=== PATIENT | female | born 1975 | race Caucasian/White ===

== ENCOUNTER 2016-12-27 18:51 | Emergency (ER) | payer MEDICARE ==
[2016-12-27 20:04] LABS: BASOPHILS % 0.2 (0.0-1.5); LYMPHOCYTES # 2.3 # k/uL (0.6-4.0); MONOCYTES # 0.2 # k/uL (0.0-0.9); MONOCYTES % 2.4 % (0.0-11.0); NEUTROPHILS # 6.7 # k/uL (1.4-7.7)
[2016-12-27] MEDS ORDERED: HALOPERIDOL LACTATE 5 MG/ML VIAL IM ONE ×3 (20:28→22:02)
[2016-12-27 20:36] LABS: eGFR (African) > 60; eGFR (Non-African) > 60
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
--- NOTE | 2016-12-27 20:58 | Diagnostic Imaging Report ---
CAMMY GUZMAN [facility] [id number] [facility] [address] [place] [address]. [id number] Report Submission Date: Dec 27, 2016 8:27:26 PM [employer] Patient Study Name: JONI ARAGON Date: Dec 27, 2016 8:09:56 PM [employer] Modality Type: CR Gender: F Description: CHEST : 77 Institution: [facility] Physician: CAMMY GUZMAN Chest 2 views History: Psych placement Findings: Right lower lobe bronchial wall thickening and possibly minimal peribronchovascular infiltrate are observed. Left lung is clear. No pleural effusions are observed. Heart size and pulmonary vascularity are normal. Impression: Right lower lobe bronchitis and possibly mild bronchopneumonia. Electronically signed on Dec 27, 2016 8:27:26 PM [employer] by: Bradley SEBASTIAN
[2016-12-27] MEDS ORDERED: HYDRALAZINE HCL 25 MG TABLET PO ONE (22:00)
[2016-12-27] MEDS ORDERED: POTASSIUM CHLORIDE 20 MEQ TABLET.ER ONE (22:10)
[2016-12-27] MEDS ORDERED: POTASSIUM CHLORIDE 20 MEQ TABLET.ER PO ONE (22:13)
[2016-12-28] MEDS ORDERED: 0.9 % SODIUM CHLORIDE 1,000 ML IV ONE (00:17)
[2016-12-28] MEDS ORDERED: 0.9 % SODIUM CHLORIDE 1,000 ML IV SCH (01:00)
[2016-12-28 03:25] VITALS: BP 106/55
[2016-12-28 05:24] LABS: AMPHETAMINE NEGATIVE ng/mL (<1000); BARBITURATES NEGATIVE ng/mL (<300); CANNABINOIDS NEGATIVE ng/mL (<50); COCAINE NEGATIVE ng/mL (<150); METHAMPHETAMINE NEGATIVE ng/mL (<1000); METHYLENEDIOXYMETHAMPHETAMINE NEGATIVE ng/mL (<500)
[2016-12-28 05:26] LABS: OCCULT BLOOD,URINE 1+ (NEGATIVE)
== END 2016-12-28 01:00 | disposition short-term general hospital (02) ==
LOC: ED 18:51
DX: R45.851 Suicidal ideations (principal)
CPT/HCPCS: 71020; 80053; 81002; 85025; 87086; 93005; A9270; G0477; G0479; G0480; G0481; J1630; J7030; 80302; 80304; 80320; 80377; 99283; 99284; S1016

== ENCOUNTER 2017-02-02 17:05 | Observation (INO) | payer MEDICARE ==
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
[2017-02-02] MEDS ORDERED: THIAMINE HCL 100 MG, MVI, ADULT NO.1 WITH VIT K 10 ML, FOLIC ACID 5 MG in 0.9 % SODIUM ... IV STA ×4 (17:24)
[2017-02-02] MEDS ORDERED: THIAMINE HCL 100 MG/ML 2ML VIAL ONE (17:30)
[2017-02-02] MEDS ORDERED: FOLIC ACID 5 MG/1 ML ONE (17:30)
[2017-02-02] MEDS ORDERED: 0.9 % SODIUM CHLORIDE 1,000 ML IV ONE (17:30)
[2017-02-02] MEDS ORDERED: MVI, ADULT NO.1 WITH VIT K 10 ML VIAL IV ONE (17:30)
[2017-02-02 17:45] LABS: BASOPHILS % 0.2 (0.0-1.5); EOSINOPHILS % 2.1 % (0.0-6.8); MEAN CORPUSCULAR HEMOGLOBIN 31.3 pg (28.0-34.0); MEAN CORPUSCULAR VOLUME 90.4 fl (80.0-100.0); MONOCYTES % 3.2 % (0.0-11.0); NEUTROPHILS # 4.4 # k/uL (1.4-7.7)
[2017-02-02 17:58] LABS: eGFR (African) > 60; eGFR (Non-African) > 60
[2017-02-02] MEDS ORDERED: POTASSIUM CHLORIDE 20 MEQ TABLET.ER PO ONE (18:37)
--- NOTE | 2017-02-02 20:41 | History and Physical Report ---
History of Present Illnes - History of Present Illness Reason for Visit: Acute alcohol intoxication History of Present Illness: 41 year old chronic alcoholic who presented to the ER today with c/o chornic alcoholism and desire to stop drinking. She is brought to the ER by her mother who is "done", and no longer will allow her in her home. - Past Medical History Cardiac: HTN Psych: Addictions (Alcoholism) Endocrine: Hypothyroidism, Other (Polycystic ovarian syndrome) - Past Surgical History Past Surgical History: Hysterectomy, Other (multiple ankle surgeries, Vaginal deliver x 4) - Past Social History Smoke: 1 pack per day Alcohol: Heavy Drugs: None Lives: Homeless Domestic Violence: Negative - Health Maintenance Health Maintenance: Cholesterol Influenza Vaccine: Current for this Influenza Season Pneumonia Vaccine: Yes Resuscitation Status: Full Code - Unable to Obtain History Unable to Obtain: No Review of Systems - Review of Systems Constitutional: negative: Fever Eyes: negative: pain ENT: negative: Ear Pain Respiratory: negative: Cough Cardiovascular: negative: Chest Pain Gastrointestinal: negative: Nausea Genitourinary: negative: Dysuria Musculoskeletal: negative: Neck Pain Skin: negative: Rash Neurological: Confusion - Medications/Allergies Allergies/Adverse Reactions: Allergies Allergy/AdvReac Type Severity Reaction Status Date / Time tramadol Allergy Severe seizure Verified 02/02/17 17:18 codeine Allergy Intermediate Itchy Skin Verified 02/02/17 17:18 Exam - Exam General: Alert (but with slurred speech) HEENT: Atraumatic, PERRLA, Nose Mucous membr. moist/[place] Neck: No: Stridor, Rigidity Lungs: Clear to auscultation Cardiovascular: Regular rate Murmur: No: Systolic Murmur Abdomen: Normal bowel sounds, Other (Tenderness of right subcostal margin and liver papable 3cm below the costal margin), Distended (due to central obesity) Genitourinary: No: Other Male Genitourinary: No: Other Female Genitourinary: No: Other Integumentary: Normal, [place] Extremities: No clubbing, No cyanosis Neurological: Other (slurred speech) Psych/Mental Status: No: Intact Judgment - Laboratory Results Laboratory Results: BAL .381 LFTs are elevated BUN/Cr 6/.6 Assessment/Plan - Assessment/Plan (1) Acute alcohol intoxication Status: Acute Current Visit: Yes Assessment: With BAL of .380 Plan: Observe overnight Work on placement for inpatient treatment in am (2) Hypertension Status: Acute Current Visit: Yes Assessment: Continue current medications (3) Hypothyroidism (acquired) Status: Acute Current Visit: Yes Assessment: Continue current dose of synthroid VTE Assessment - RISK FACTOR SCORE VTE RISK FACTOR SCORES: AGE 40-60 YEARS - RISK VTE LOW RISK: SCORE OF 1 OR LESS (RISK PROXIMAL DVT 0.4%) NO PROPHYLAXIS NEEDED (No DVT prophylaxis needed)
[2017-02-02] MEDS ORDERED: traZODone HCL 50 MG TABLET PO SCH (21:00)
[2017-02-02] MEDS ORDERED: SPIRONOLACTONE 25 MG TABLET PO SCH (21:07)
[2017-02-02] MEDS ORDERED: HYDROCHLOROTHIAZIDE 25 MG TABLET PO SCH (21:07)
[2017-02-02] MEDS ORDERED: levETIRAcetam 500 MG TABLET PO SCH (21:07)
[2017-02-02] MEDS ORDERED: 0.9 % SODIUM CHLORIDE 1,000 ML, POTASSIUM CHLORIDE 40 MEQ/NS 40 ML IV SCH ×2 (21:07)
[2017-02-02] MEDS ORDERED: POTASSIUM CHLORIDE 40 MEQ/NS 1,000 ML IV ONE (21:19)
[2017-02-02] MEDS ORDERED: SALINE FLUSH 10 ML DISP.SYRIN IVF ONE (21:19)
[2017-02-02] MEDS: NICOTINE 14mg PATCH.TD24 TD SCH (21:32)
[2017-02-02] MEDS: METOPROLOL TARTRATE 50 MG TABLET PO SCH (21:36)
[2017-02-02] MEDS: levETIRAcetam 500 MG TABLET PO SCH (21:36)
[2017-02-02] MEDS: 0.9 % SODIUM CHLORIDE 1,000 ML IV SCH (21:37)
[2017-02-02 23:04] VITALS: BMI 26.7
[2017-02-03] MEDS ORDERED: LEVOTHYROXINE SODIUM 100 MCG TABLET PO ONE (03:07)
[2017-02-03 05:56] LABS: AMPHETAMINE NEGATIVE ng/mL (<1000); BARBITURATES NEGATIVE ng/mL (<300); CANNABINOIDS NEGATIVE ng/mL (<50); COCAINE NEGATIVE ng/mL (<150); METHAMPHETAMINE NEGATIVE ng/mL (<1000); METHYLENEDIOXYMETHAMPHETAMINE NEGATIVE ng/mL (<500)
[2017-02-03] MEDS: 0.9 % SODIUM CHLORIDE 1,000 ML IV SCH ×2 (06:24→08:13)
[2017-02-03] MEDS ORDERED: HYDROCHLOROTHIAZIDE 25 MG TABLET PO SCH (07:00)
[2017-02-03] MEDS ORDERED: LEVOTHYROXINE SODIUM 25 MCG TABLET PO SCH ×2 (07:00→09:00)
[2017-02-03 07:12] LABS: eGFR (African) > 60; eGFR (Non-African) > 60
[2017-02-03] MEDS: METOPROLOL TARTRATE 50 MG TABLET PO SCH (08:16)
[2017-02-03] MEDS: NICOTINE 14mg PATCH.TD24 TD SCH (08:17)
[2017-02-03] MEDS: levETIRAcetam 500 MG TABLET PO SCH (08:17)
[2017-02-03] MEDS ORDERED: PRAZOSIN HCL 1 MG CAP PO SCH (09:00)
[2017-02-03] MEDS ORDERED: SPIRONOLACTONE 25 MG TABLET PO SCH (09:00)
[2017-02-03] MEDS ORDERED: GABAPENTIN 300 MG CAPSULE PO SCH (09:00)
[2017-02-03] MEDS ORDERED: amLODIPine BESYLATE 5 MG TABLET PO SCH ×2 (09:00)
[2017-02-03] MEDS ORDERED: clonazePAM 1 MG TABLET PO ONE (09:04)
[2017-02-03] MEDS ORDERED: clonazePAM 0.5 MG TABLET PO ONE (09:19)
[2017-02-03 10:36] VITALS: BP 152/94
--- NOTE | 2017-02-04 08:50 | Discharge Summary ---
DATE OF ADMISSION: February 02, 2017 DATE OF DISCHARGE: February 03, 2017 DIAGNOSES ON THIS HOSPITALIZATION: 1. Acute alcohol intoxication. 2. Hypothyroidism. 3. Chronic anxiety. SUMMARIZATION OF ADMISSION HISTORY AND PHYSICAL: This is a 41-year-old female who presented to the emergency department with a blood alcohol level of 0.380. She was admitted and observed overnight. The next morning her blood alcohol level was less than 0.01. She will be discharged. [facility] is working on inpatient drug/alcohol rehabilitation for her. MEDICATIONS ON DISCHARGE: Continue all of her regular medications. DISCHARGE INSTRUCTIONS: Follow up with Dr. Morales after discharge from inpatient rehabilitation. ROMULO
== END 2017-02-03 14:08 | disposition short-term general hospital (02) ==
LOC: ED 17:05 → SOUTH 19:42
PROVIDERS: ADMIT Family Medicine; ATTEND Family Medicine
DX: F10.129 Alcohol abuse with intoxication, unspecified (principal); Y90.1 Blood alcohol level of 20-39 mg/100 ml; E03.9 Hypothyroidism, unspecified; F41.9 Anxiety disorder, unspecified
CPT/HCPCS: 36415; 80048; 80053; 85025; A9270; G0378; G0480; G0481; J3411; J3480; J3490; J7030; 80320; 80377; S1016

== ENCOUNTER 2017-06-28 23:06 | Emergency (ER) | payer MEDICARE ==
[2017-06-28 23:51] LABS: BASOPHILS % 0.4 (0.0-1.5); EOSINOPHILS % 2.7 % (0.0-6.8); MEAN CORPUSCULAR HEMOGLOBIN 29.9 pg (28.0-34.0); MEAN CORPUSCULAR VOLUME 91.5 fl (80.0-100.0); NEUTROPHILS # 3.7 # k/uL (1.4-7.7)
[2017-06-29 00:06] LABS: eGFR (African) > 60; eGFR (Non-African) > 60
[2017-06-29] MEDS ORDERED: THIAMINE HCL 100 MG/ML 2ML VIAL ONE (00:41)
[2017-06-29] MEDS ORDERED: 0.9 % SODIUM CHLORIDE 1,000 ML IV ONE (00:41)
[2017-06-29] MEDS ORDERED: FOLIC ACID 5 MG/1 ML ONE (00:42)
[2017-06-29] MEDS ORDERED: MVI, ADULT NO.1 WITH VIT K 10 ML VIAL IV ONE (00:42)
[2017-06-29] MEDS: 0.9 % SODIUM CHLORIDE 1,000 ML IV ONE (00:57)
[2017-06-29] MEDS: THIAMINE HCL 100 MG, MVI, ADULT NO.1 WITH VIT K 10 ML, FOLIC ACID 5 MG in 0.9 % SODIUM ... IV SCH ×4 (01:11)
[2017-06-29] MEDS: POTASSIUM CHLORIDE 20 MEQ TABLET.ER PO ONE (01:14)
--- NOTE | 2017-06-29 01:22 | ED Physician Documentation ---
General Adult - HISTORIAN Historian: patient - HPI Stated Complaint: To much alcohol Chief Complaint: General Adult Onset: hours Further Comments: yes (41 year old female patient brought in by Mother requesting detox unit admission. Patient intoxicated, slurred speech, strong smell of ETOH, cannot contribute to ROS or H&P.) - ROS CONST: no problems (Patient cannot contribute to ROS or H&P due to intoxication) - PAST HX Other History: other (HTN, ETOH abuse, hypothyroidism) Allergies/Adverse Reactions: Allergies Allergy/AdvReac Type Severity Reaction Status Date / Time tramadol Allergy Severe seizure Verified 06/29/17 00:09 codeine Allergy Intermediate Itchy Skin Verified 06/29/17 00:09 Home Medications: Ambulatory Orders Medication Instructions Recorded Hydrochlorothiazide 25 mg PO BID 12/20/15 Levothyroxine Sodium [Synthroid] 112 mcg PO D 12/20/15 Gabapentin [Neurontin] 1,200 mg PO TID 12/27/16 Oxycodone HCl/Acetaminophen 1 tab PO Q6 PRN 12/27/16 [Oxycodone-Acetaminophen 10-325] Prazosin HCl [Minipress] 2 mg PO QDAY 12/27/16 Spironolactone [Aldactone] 25 mg PO HS 12/27/16 Spironolactone [Aldactone] 50 mg PO QDAY 12/27/16 Trazodone HCl [Desyrel] 100 mg PO HS 12/27/16 amLODIPine BESYLATE [Norvasc] 5 mg PO QDAY 12/27/16 clonazePAM [Klonopin] 1 mg PO TID PRN 12/27/16 - SOCIAL HX Smoking History: cigarettes Alcohol Use: heavy - FAMILY HX Family History: No - VITAL SIGNS Vital Signs: Vital Signs Temp Pulse Resp BP Pulse Ox 68 16 124/68 99 06/28/17 23:06 06/28/17 23:06 06/28/17 23:06 06/28/17 23:06 - REVIEWED ASSESSMENTS Nursing Assessment Reviewed: Yes Vitals Reviewed: Yes Progress - Progress Progress: Educated patient's mother on process for admission to detox. Explained we could not directly admit patient to detox unit tonight. Patient denies suicidal thoughts of ideation 0100 Patient remains very sleepy, cooperative when awakened. ED Results Lab/Radiology - Lab Results Lab Results: Lab Results 06/28/17 06/28/17 23:44 23:44 WBC 6.50 K/ul K/ul (4.00-12.00) RBC 4.55 M/ul M/ul (3.90-5.20) Hgb 13.6 g/dL g/dL (12.0-16.0) Hct 41.6 % % (34.5-46.5) MCV 91.5 fl fl (80.0-100.0) MCH 29.9 pg pg (28.0-34.0) MCHC 32.6 g/dL g/dL (30.0-36.0) RDW 14.1 % % (11.3-14.3) Plt Count 175 K/mm3 K/mm3 (130-400) Neut % (Auto) 57.0 % % (39.0-79.0) Lymph % (Auto) 35.5 % % (16.0-50.0) [place] % (Auto) 3.0 % % (0.0-11.0) Eos % (Auto) 2.7 % % (0.0-6.8) Baso % (Auto) 0.4 (0.0-1.5) Neut # (Auto) 3.7 # k/uL # k/uL (1.4-7.7) Lymph # (Auto) 2.3 # k/uL # k/uL (0.6-4.0) [place] # (Auto) 0.2 # k/uL # k/uL (0.0-0.9) Eos # (Auto) 0.2 # k/uL # k/uL (0.0-0.6) Baso # (Auto) 0.0 # k/uL # k/uL (0.0-0.5) Reactive Lymphs % 1.4 % % (0.0-5.0) Reactive Lymphs # 0.1 # k/uL # k/uL (0.0-0.8) Sodium 145 mmol/L mmol/L (136-145) Potassium 3.1 mmol/L L mmol/L (3.5-5.0) Chloride 110 mmol/L mmol/L (98-110) Carbon Dioxide 30 mmol/L mmol/L (20-32) BUN 7 mg/dL L mg/dL (10-26) Creatinine 0.7 mg/dL mg/dL (0.4-1.5) Est GFR ( Amer) > 60 (60 - ) Est GFR (Non-Af Amer) > 60 (60 - ) Glucose 98 mg/dL mg/dL (70-99) Calcium 9.2 mg/dL mg/dL (8.5-10.5) Total Bilirubin 0.4 mg/dL mg/dL (0.2-1.2) AST 28 U/L U/L (0-41) ALT 19 U/L U/L (0-45) Alkaline Phosphatase 100 U/L U/L (46-116) Total Protein 7.7 g/dL g/dL (6.0-8.5) Albumin 4.8 g/dL g/dL (3.0-5.5) Ethyl Alcohol 376.0 MG/DL H MG/DL (<10.0) - Orders Orders: ED Orders Category Date Time Status Place IV Lock 1T Care 06/28/17 23:11 Active CBC/PLATELET/DIFF Stat Lab 06/28/17 23:44 Completed CMP Stat Lab 06/28/17 23:44 Completed ETHANOL MEDICAL USE ONLY Stat Lab 06/28/17 23:44 Completed 0.9 % Sodium Chloride [Normal Saline] 1,000 ml Med 06/29/17 00:41 Discontinued IV .STK-MED 0.9 % Sodium Chloride [Normal Saline] 1,000 ml Med 06/28/17 23:12 Discontinued IV NOW Folic Acid [Folvite] Med 06/29/17 00:42 Discontinued 5 mg .ROUTE .STK-MED ONE Mvi, Adult No.1 with Vit K [M.v.i. Adult] Med 06/29/17 00:42 Discontinued 10 ml IV .STK-MED ONE Potassium Chloride [Klor-Con M20] Med 06/29/17 00:48 Discontinued 20 meq PO NOW ONE Thiamine HCl Med 06/29/17 00:41 Discontinued 200 mg .ROUTE .STK-MED ONE Thiamine HCl 100 mg Med 06/29/17 01:00 Ordered Mvi, Adult No.1 with Vit K [M.v.i. 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 ) Discharge Clincal Impression: Alcohol abuse Acute alcohol intoxication Qualifiers: Complication of substance-induced condition: uncomplicated Qualified Code(s): F10.920 - Alcohol use, unspecified with intoxication, uncomplicated Referrals: Primary Doctor,No [Primary Care Provider] - 2 Days Additional Instructions: Stop drinking Attend an AA meeting as soon as possible - see attached [email or web address] Home Medications: Ambulatory Orders Hydrochlorothiazide 25 mg PO BID 12/20/15 Levothyroxine Sodium [Synthroid] 112 mcg PO D 12/20/15 Gabapentin [Neurontin] 1,200 mg PO TID 12/27/16 Oxycodone HCl/Acetaminophen [Oxycodone-Acetaminophen 10-325] 1 tab PO Q6 PRN 08/05 Prazosin HCl [Minipress] 2 mg PO QDAY 12/27/16 Spironolactone [Aldactone] 25 mg PO HS 12/27/16 Spironolactone [Aldactone] 50 mg PO QDAY 12/27/16 Trazodone HCl [Desyrel] 100 mg PO HS 12/27/16 amLODIPine BESYLATE [Norvasc] 5 mg PO QDAY 12/27/16 clonazePAM [Klonopin] 1 mg PO TID PRN 12/27/16 Condition: Stable Disposition: 01 HOME, SELF-CARE Decision to Admit: NO Decision Time: 01:51
[2017-06-29 02:24] VITALS: BP 122/64
== END 2017-06-29 02:05 | disposition home or self-care (01) ==
LOC: ED 23:06
DX: F10.129 Alcohol abuse with intoxication, unspecified (principal); F10.920 Alcohol use, unspecified with intoxication, uncomplicated
CPT/HCPCS: 80053; 85025; A9270; G0480; J3411; J3490; J7030; 80320; 96361; 96374; 99283; S1016

== ENCOUNTER 2017-08-26 17:41 | Emergency (ER) | payer MEDICARE ==
--- NOTE | 2017-08-26 17:48 | ED Physician Documentation ---
General Adult - HISTORIAN Historian: patient, other (mom ) - HPI Stated Complaint: alcoholism and suicidal per mom Chief Complaint: Altered Mental Status Onset: other (fighting this for years per mom ) Timing: still present Severity: severe Further Comments: yes (mom has called receivable executive and returns with 96 hour hold) Last known Well Date: 08/26/17 Last Known Well Time: 08:00 Last known Well Code/Unknown Code: Unknown - ROS CONST: no problems EYES/ENT: none CVS/RESP: none GI/: none MS/SKIN/LYMPH: none NEURO/PSYCH: dizziness. denies: headache, fainting - PAST HX Past History: other (she does not respond ) Other History: other (she does not respond ) Surgeries/Procedures: other (she does not repsond ) Immunizations: referred to PCP - SOCIAL HX Smoking History: cigarettes Alcohol Use: heavy Drug Use: none - FAMILY HX Family History: No - VITAL SIGNS Vital Signs: Vital Signs Temp Pulse Resp BP Pulse Ox 122/64 06/29/17 02:22 - REVIEWED ASSESSMENTS Nursing Assessment Reviewed: Yes Vitals Reviewed: Yes <Brittney Alcantara - Last Filed: 08/26/17 18:55> - VITAL SIGNS Vital Signs: Vital Signs Temp Pulse Resp BP Pulse Ox 97.9 F 88 16 137/96 99 08/26/17 19:30 08/26/17 19:30 08/26/17 19:30 08/26/17 19:30 08/26/17 19:30 <Suhail Elias - Last Filed: 08/26/17 20:39> - PAST HX Allergies/Adverse Reactions: Allergies Allergy/AdvReac Type Severity Reaction Status Date / Time tramadol Allergy Severe seizure Verified 08/26/17 18:21 codeine Allergy Intermediate Itchy Skin Verified 08/26/17 18:21 Home Medications: Ambulatory Orders Medication Instructions Recorded Hydrochlorothiazide 25 mg PO BID 12/20/15 Levothyroxine Sodium [Synthroid] 112 mcg PO D 12/20/15 Gabapentin [Neurontin] 1,200 mg PO TID 12/27/16 Prazosin HCl [Minipress] 2 mg PO QDAY 12/27/16 Spironolactone [Aldactone] 25 mg PO HS 12/27/16 Spironolactone [Aldactone] 50 mg PO QDAY 12/27/16 Trazodone HCl [Desyrel] 100 mg PO HS 12/27/16 amLODIPine BESYLATE [Norvasc] 5 mg PO QDAY 12/27/16 clonazePAM [Klonopin] 1 mg PO TID PRN 12/27/16 Progress - Progress Progress: report to Dr Elias 1800 DG <Lizarragae Dee - Last Filed: 08/26/17 18:55> ED Results Lab/Radiology - Lab Results Lab Results: Lab Results 08/26/17 08/26/17 08/26/17 19:35 18:19 18:19 WBC 8.80 K/ul K/ul (4.00-12.00) RBC 5.07 M/ul M/ul (3.90-5.20) Hgb 15.0 g/dL g/dL (12.0-16.0) Hct 45.1 % % (34.5-46.5) MCV 89.0 fl fl (80.0-100.0) MCH 29.7 pg pg (28.0-34.0) MCHC 33.3 g/dL g/dL (30.0-36.0) RDW 13.1 % % (11.3-14.3) Plt Count 232 K/mm3 K/mm3 (130-400) Neut % (Auto) 66.1 % % (39.0-79.0) Lymph % (Auto) 29.4 % % (16.0-50.0) [place] % (Auto) 2.1 % % (0.0-11.0) Eos % (Auto) 0.7 % % (0.0-6.8) Baso % (Auto) 0.2 (0.0-1.5) Neut # (Auto) 5.8 # k/uL # k/uL (1.4-7.7) Lymph # (Auto) 2.6 # k/uL # k/uL (0.6-4.0) [place] # (Auto) 0.2 # k/uL # k/uL (0.0-0.9) Eos # (Auto) 0.1 # k/uL # k/uL (0.0-0.6) Baso # (Auto) 0.0 # k/uL # k/uL (0.0-0.5) Reactive Lymphs % 1.6 % % (0.0-5.0) Reactive Lymphs # 0.1 # k/uL # k/uL (0.0-0.8) Sodium Potassium Chloride Carbon Dioxide BUN Creatinine Estimated Creat Clear Est GFR ( Amer) Est GFR (Non-Af Amer) Glucose Calcium Total Bilirubin AST ALT Alkaline Phosphatase Total Protein Albumin Opiates Screen Negative ng/mL ng/mL (<300) Oxycodone Screen Negative ng/mL ng/mL (<100) Methadone Screen Negative ng/mL ng/mL (<300) POC Urine Barbiturates Negative ng/mL ng/mL (<300) Tricyclic Antidepress Negative ng/mL ng/mL (<300) Phencyclidine Screen Negative ng/mL ng/mL (<25) Amphetamines Screen Negative ng/mL ng/mL (<1000) POC Ur Methamphetamine Negative ng/mL ng/mL (<1000) MDMA Negative ng/mL ng/mL (<500) Benzodiazepines Screen Negative ng/mL ng/mL (<300) Cocaine Screen Negative ng/mL ng/mL (<300) U Cannabinoids Screen Negative ng/mL ng/mL (< 50) Ethyl Alcohol 317.7 mg/dL H mg/dL (0.0-10.0) 08/26/17 18:15 WBC RBC Hgb Hct MCV MCH MCHC RDW Plt Count Neut % (Auto) Lymph % (Auto) [place] % (Auto) Eos % (Auto) Baso % (Auto) Neut # (Auto) Lymph # (Auto) [place] # (Auto) Eos # (Auto) Baso # (Auto) Reactive Lymphs % Reactive Lymphs # Sodium 146 mmol/L H mmol/L (137-145) Potassium 3.3 mmol/L L mmol/L (3.5-5.1) Chloride 102 mmol/L mmol/L (98-107) Carbon Dioxide 29 mmol/L mmol/L (22-30) BUN 10 mg/dL mg/dL (7-17) Creatinine 0.70 mg/dL mg/dL (0.52-1.04) Estimated Creat Clear 152 Est GFR ( Amer) > 60 (60 - ) Est GFR (Non-Af Amer) > 60 (60 - ) Glucose 83 mg/dL mg/dL (74-106) Calcium 9.2 mg/dL mg/dL (8.4-10.2) Total Bilirubin 0.5 mg/dL mg/dL (0.2-1.3) AST 49 U/L H U/L (15-46) ALT 42 U/L U/L (13-69) Alkaline Phosphatase 89 U/L U/L (38-126) Total Protein 7.9 g/dL g/dL (6.3-8.2) Albumin 4.6 g/dL g/dL (3.5-5.0) Opiates Screen Oxycodone Screen Methadone Screen POC Urine Barbiturates Tricyclic Antidepress Phencyclidine Screen Amphetamines Screen POC Ur Methamphetamine MDMA Benzodiazepines Screen Cocaine Screen U Cannabinoids Screen Ethyl Alcohol - Orders Orders: ED Orders Category Date Time Status Place IV Lock 1T Care 08/26/17 18:12 Active ALCOHOL MEDICAL USE ONLY Urgent Lab 08/26/17 18:19 Completed CBC AUTO DIFF Urgent Lab 08/26/17 18:19 Completed CMP [CMP] Routine Lab 08/26/17 18:15 Completed Urine drug screen [DRUG SCREEN URINE MEDICAL ONLY] Lab 08/26/17 19:35 Completed Routine 0.9 % Sodium Chloride [Normal Saline] 1,000 ml Med 08/26/17 18:17 Discontinued IV .STK-MED Folic Acid [Folvite] Med 08/26/17 18:17 Discontinued 5 mg .ROUTE .STK-MED ONE Mvi, Adult No.1 with Vit K [M.v.i. Adult] Med 08/26/17 18:17 Discontinued 10 ml IV .STK-MED ONE [facility] Med 08/26/17 18:23 Discontinued 1 each MC .STK-MED ONE Thiamine HCl Med 08/26/17 18:17 Discontinued 200 mg .ROUTE .STK-MED ONE Thiamine HCl 100 mg Med 08/26/17 19:00 Ordered Mvi, Adult No.1 with Vit K [M.v.i. Adult] 10 ml Folic Acid [Folvite] 5 mg 0.9 % Sodium Chloride [Normal Saline] 1,000 ml IV 1T <Suhail Elias - Last Filed: 08/26/17 20:39> General Adult Physical Exam - PHYSICAL EXAM GENERAL APPEARANCE: no distress EENT: ENT inspection normal NECK: normal inspection RESPIRATORY: no resp distress, chest non-tender, breath sounds normal CVS: reg rate & rhythm, heart sounds normal ABDOMEN: soft, no organomegaly, normal bowel sounds SKIN: warm/dry, normal color EXTREMITIES: non-tender NEURO: disoriented, other (she is intoxicated ) <Brittney Alcantara - Last Filed: 08/26/17 18:55> Discharge <Brittney Alcantara - Last Filed: 08/26/17 18:55> Comments: rec pt fromn DR HILL -HAS 96HR HOLD FOR OF [facility] Decision to Admit: [id number] Decision Time: 20:39 <Suhail Elias - Last Filed: 08/26/17 20:39> Clincal Impression: chronic ethanol abuse, angerdisorder w/agitation w/etoh, violent behavior when intoxicated Suicidal overdose Qualifiers: Encounter type: initial encounter Qualified Code(s): T50.902A - Poisoning by unspecified drugs, medicaments and biological substances, intentional self-harm , initial encounter Referrals: Primary Doctor,No [Primary Care Provider] - 2 Days Condition: Fair Disposition: 02 XFER T-[facility]
[2017-08-26] MEDS ORDERED: THIAMINE HCL 100 MG/ML 2ML VIAL ONE (18:17)
[2017-08-26] MEDS ORDERED: 0.9 % SODIUM CHLORIDE 1,000 ML IV ONE (18:17)
[2017-08-26] MEDS ORDERED: MVI, ADULT NO.1 WITH VIT K 10 ML VIAL IV ONE (18:17)
[2017-08-26] MEDS ORDERED: FOLIC ACID 5 MG/1 ML ONE (18:17)
[2017-08-26] MEDS ORDERED: PHARMACY KEY 1 EACH EACH MC ONE (18:23)
[2017-08-26 18:27] LABS: BASOPHILS % 0.2 (0.0-1.5); EOSINOPHILS % 0.7 % (0.0-6.8); MEAN CORPUSCULAR HEMOGLOBIN 29.7 pg (28.0-34.0); MONOCYTES % 2.1 % (0.0-11.0); NEUTROPHILS # 5.8 # k/uL (1.4-7.7)
[2017-08-26 18:38] LABS: eGFR (African) > 60; eGFR (Non-African) > 60
[2017-08-26] MEDS: THIAMINE HCL 100 MG, MVI, ADULT NO.1 WITH VIT K 10 ML, FOLIC ACID 5 MG in 0.9 % SODIUM ... IV SCH ×4 (19:00)
[2017-08-26 19:41] LABS: AMPHETAMINE NEGATIVE ng/mL (<1000); BARBITURATES NEGATIVE ng/mL (<300); CANNABINOIDS NEGATIVE ng/mL (< 50); COCAINE NEGATIVE ng/mL (<300); METHAMPHETAMINE NEGATIVE ng/mL (<1000); METHYLENEDIOXYMETHAMPHETAMINE NEGATIVE ng/mL (<500); OPIATES NEGATIVE ng/mL (<300)
[2017-08-26 21:02] VITALS: BP 151/100
== END 2017-08-26 21:00 | disposition short-term general hospital (02) ==
LOC: ED 17:41
DX: T50.902A Poisoning by unspecified drugs, medicaments and biological substances, intentional self-harm, initial encounter (principal); X58.XXXA Exposure to other specified factors, initial encounter; Y93.9 Activity, unspecified; Y99.9 Unspecified external cause status; F10.129 Alcohol abuse with intoxication, unspecified; R45.4 Irritability and anger
CPT/HCPCS: 80053; 85025; G0480; G0481; J3411; J3490; J7030; 80320; 80377; 96361; 96374; 99284; S1016

== ENCOUNTER 2017-10-21 19:23 | Observation (INO) | payer MEDICARE ==
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
[2017-10-21] MEDS ORDERED: LORazepam 2 MG/ML VIAL IVP ONE (19:48)
[2017-10-21] MEDS ORDERED: 0.9 % SODIUM CHLORIDE 1,000 ML IV ONE (19:53)
[2017-10-21] MEDS ORDERED: THIAMINE HCL 100 MG/ML 2ML VIAL ONE (19:53)
[2017-10-21] MEDS: THIAMINE HCL 100 MG, MVI, ADULT NO.1 WITH VIT K 10 ML, FOLIC ACID 5 MG in 0.9 % SODIUM ... IV SCH ×8 (20:25→23:06)
[2017-10-21 20:38] LABS: BASOPHILS % 0.3 (0.0-1.5); MEAN CORPUSCULAR HEMOGLOBIN 31.4 pg (28.0-34.0); MONOCYTES % 4.5 % (0.0-11.0); NEUTROPHILS # 4.6 # k/uL (1.4-7.7)
[2017-10-21 20:53] LABS: eGFR (African) > 60; eGFR (Non-African) > 60
[2017-10-21] MEDS ORDERED: HALOPERIDOL LACTATE 5 MG/ML VIAL IM ONE (21:55)
[2017-10-21] MEDS ORDERED: LORazepam 2 MG/ML VIAL IVP PRN (22:27)
[2017-10-21] MEDS: 0.9 % SODIUM CHLORIDE 1,000 ML IV SCH (22:30)
[2017-10-21] MEDS ORDERED: LEVOTHYROXINE SODIUM 25 MCG TABLET ONE (22:59)
[2017-10-21] MEDS ORDERED: LEVOTHYROXINE SODIUM 100 MCG TABLET ONE (23:00)
[2017-10-21] MEDS: GABAPENTIN 300 MG CAPSULE PO SCH (23:04)
[2017-10-21] MEDS: levETIRAcetam 500 MG TABLET PO SCH (23:04)
[2017-10-21] MEDS: SPIRONOLACTONE 25 MG TABLET PO SCH (23:05)
[2017-10-21 23:30] VITALS: BMI 24.0
[2017-10-22] MEDS: 0.9 % SODIUM CHLORIDE 1,000 ML IV SCH (08:59)
[2017-10-22] MEDS ORDERED: METOPROLOL SUCCINATE 50 MG TAB.ER.24H PO SCH (09:00)
[2017-10-22] MEDS ORDERED: LEVOTHYROXINE SODIUM 25 MCG TABLET PO SCH (09:00)
[2017-10-22] MEDS ORDERED: HYDROCHLOROTHIAZIDE 25 MG TABLET PO SCH (09:00)
[2017-10-22] MEDS ORDERED: PRAZOSIN HCL 1 MG CAPSULE PO SCH (09:00)
[2017-10-22] MEDS: levETIRAcetam 500 MG TABLET PO SCH (09:05)
[2017-10-22] MEDS: GABAPENTIN 300 MG CAPSULE PO SCH (09:05)
[2017-10-22] MEDS: SPIRONOLACTONE 25 MG TABLET PO SCH (09:06)
[2017-10-22] MEDS ORDERED: SALINE FLUSH 10 ML DISP.SYRIN IVF ONE (09:32)
[2017-10-22 09:46] LABS: APPEARANCE,URINE CLEAR (CLEAR); COLOR,URINE YELLOW (YELLOW)
[2017-10-22 09:47] LABS: OCCULT BLOOD,URINE NEGATIVE (NEGATIVE); UROBILINOGEN URINE 0.2 Eu (0.2-1.0)
[2017-10-22 11:14] LABS: BASOPHILS % 0.2 (0.0-1.5); EOSINOPHILS % 1.8 % (0.0-6.8); MEAN CORPUSCULAR HEMOGLOBIN 30.3 pg (28.0-34.0); MEAN CORPUSCULAR VOLUME 92.2 fl (80.0-100.0); MONOCYTES % 4.9 % (0.0-11.0); NEUTROPHILS # 3.4 # k/uL (1.4-7.7)
[2017-10-22 11:15] LABS: eGFR (African) > 60; eGFR (Non-African) > 60
[2017-10-22 11:46] VITALS: BP 139/92
[2017-10-22] MEDS ORDERED: traZODone HCL 50 MG TABLET ONE (12:32)
[2017-10-22] MEDS ORDERED: traZODone HCL 50 MG TABLET PO SCH (21:00)
== END 2017-10-22 13:20 | disposition home or self-care (01) ==
LOC: ED 19:23 → SOUTH 22:44
PROVIDERS: ADMIT Emergency Medicine; ATTEND Emergency Medicine
DX: F10.239 Alcohol dependence with withdrawal, unspecified (principal); F41.9 Anxiety disorder, unspecified
CPT/HCPCS: 36415; 80053; 81002; 85025; G0378; G0480; J1630; J2060; J3411; J3490; J7030; 80320; 96361; 96372; 96374; 99217; 99283; 99284; S1016

== ENCOUNTER 2017-12-22 16:22 | Emergency (ER) | payer OTHER ==
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
[2017-12-22] MEDS: 0.9 % SODIUM CHLORIDE 1,000 ML IV SCH (18:07)
[2017-12-22] MEDS: LABETALOL HCL 100MG/20ML VIAL IVP STA ×2 (18:07→18:08)
[2017-12-22] MEDS: CloNIDine HCL 0.1 MG TABLET PO ONE ×2 (18:09)
[2017-12-22 19:09] VITALS: BP 142/98
== END 2017-12-22 18:07 | disposition home or self-care (01) ==
LOC: ED 16:22
DX: Z76.89 Persons encountering health services in other specified circumstances (principal); I10 Essential (primary) hypertension; F10.129 Alcohol abuse with intoxication, unspecified
CPT/HCPCS: 99282

== ENCOUNTER 2018-03-12 17:36 | Emergency (ER) | payer OTHER ==
[2018-03-12] MEDS ORDERED: 0.9 % SODIUM CHLORIDE 1,000 ML IV ONE (18:14)
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
[2018-03-12 19:29] LABS: BASOPHILS % 0.1 (0.0-1.5); MEAN CORPUSCULAR HEMOGLOBIN 31.8 pg (28.0-34.0); MEAN CORPUSCULAR VOLUME 95.1 fl (80.0-100.0); MONOCYTES % 3.1 % (0.0-11.0); NEUTROPHILS # 6.4 # k/uL (1.4-7.7)
[2018-03-12 19:34] LABS: eGFR (African) > 60; eGFR (Non-African) > 60
[2018-03-12 20:42] VITALS: BP 157/105
[2018-03-13 07:18] LABS: CANNABINOIDS NEGATIVE ng/mL (< 50); METHYLENEDIOXYMETHAMPHETAMINE NON NEGATIVE ng/mL (<500)
[2018-03-13 07:18] LABS: APPEARANCE,URINE CLEAR (CLEAR); COLOR,URINE YELLOW (YELLOW); OCCULT BLOOD,URINE NEGATIVE (NEGATIVE)
== END 2018-03-12 20:10 | disposition home or self-care (01) ==
LOC: ED 17:36
DX: G40.909 Epilepsy, unspecified, not intractable, without status epilepticus (principal)
CPT/HCPCS: 80053; 80177; 81002; 85025; G0480; G0481; J7030; 80320; 80377; 96360; 99284

== ENCOUNTER 2018-03-12 21:26 | Emergency (ER) | payer OTHER ==
--- NOTE | 2018-03-12 21:37 | ED Physician Documentation ---
Seizure - HISTORIAN Historian: patient, paramedics - [facility] Stated Complaint: Seizure Activity Chief Complaint: Seizure Additional Information: Patient was recently discharged to home from ER after 3 hour evaluation where no seizure activity was noted. Patient was discharged to home alert and oriented x 4. EMS brought patient back to ER status post seizure. Patient states that she went home- denies taking any medication- denies any drug use- states she did smoke a cigarette-and took a shower. Per EMS, friend stated, that while patient was in the shower she had a "seizure with all extremity involvement" that lasted approximately 45 seconds. Upon EMS arrival they stated that patient did appear confused and disoriented- noticed some "drool" to patient lip. Patient was not incontinent of bowel or bladder. Did night bite tongue or gums. Upon arrival patient is alert and oriented. Upon talking to patient it appears that patient tends to be having orthostatic moments since activity happens while standing. Prior to today patient states that she has not had a seizure for 2-3 weeks. Her PCP monitors her seizure medication which has not been adjusted in awhile. Last known Well Date: 03/12/18 Last Known Well Time: 21:00 Last known Well Code/Unknown Code: Known Witnessed By: friend Preceding Symptoms: denies: recent illness, fever, chills, recent alcohol intake , recent drug use, missed seizure meds Character of Seizure(s): "shaking all over". denies: lost consciousness, unresponsiveness, incontinence of urine, incontinence of stool, stopped breathing Postictal Symptoms: confusion (per EMS), speech difficulty (per EMS- had some drooling) Location of Injury: none - ROS NEURO/PSYCH: denies: headache EYES/ENT: none CVS/RESP: none GI/: denies: adominal pain, nausea, vomiting MS/SKIN/LYMPH: none - PAST HX Previous seizure/seizure disorder: occasional Etiology: ethanol abuse, other (MS/ Chronic pain) Allergies/Adverse Reactions: Allergies Allergy/AdvReac Type Severity Reaction Status Date / Time tramadol Allergy Severe seizure Verified 03/12/18 21:34 codeine Allergy Intermediate Itchy Skin Verified 03/12/18 21:34 Home Medications: Ambulatory Orders Medication Instructions Recorded Duloxetine HCl [Duloxetine HCl] 60 mg PO D 03/12/18 Gabapentin [Neurontin] 1,200 mg PO TID 03/12/18 Hydroxyzine HCl [Hydroxyzine HCl] 25 mg PO D 03/12/18 Labetalol HCl [Labetalol HCl] 200 mg PO TID 03/12/18 Levothyroxine Sodium [Synthroid] 175 mcg PO D 03/12/18 Naltrexone Microspheres [Vivitrol] 50 mg PO BID 03/12/18 Ondansetron [Zofran Odt] 4 mg SL PRN PRN 03/12/18 Prazosin HCl 3 mg PO HS 03/12/18 Spironolactone [Spironolactone] 25 mg PO [id number] 03/12/18 Spironolactone [Spironolactone] 50 mg PO AM 03/12/18 Trazodone HCl 300 mg PO HS 03/12/18 Varenicline Tartrate [Chantix] 1 mg PO BID 03/12/18 levETIRAcetam [Keppra] 500 mg PO BID 03/12/18 - SOCIAL HX Smoking History: cigarettes, less than 1 pack/day Alcohol Use: occasionally Drug Use: none - FAMILY HX Family History: none - VITAL SIGNS Vital Signs: Vital Signs Temp Pulse Resp BP Pulse Ox 97.6 F 79 16 161/110 96 03/12/18 21:30 03/13/18 00:10 03/13/18 00:10 03/13/18 00:10 03/13/18 00:10 - REVIEWED ASSESSMENTS Nursing Assessment Reviewed: Yes Vitals Reviewed: Yes Progress - Results/Orders Results/Orders: Orthostatics completed lying 134/95 93 Sitting 132/95 89 (became dizzy) standing 118/81 pulse of 109 (patient became diaphoretic) Will hydrate patient ED Results Lab/Radiology - Orders Orders: ED Orders Category Date Time Status Orthostatics 1T Care 03/12/18 21:46 Active 0.9 % Sodium Chloride [Normal Saline] 1,000 ml Med 03/12/18 22:02 Discontinued IV Q1H 0.9 % Sodium Chloride [Normal Saline] 1,000 ml Med 03/12/18 23:02 Discontinued IV Q1H Ibuprofen [Advil] Med 03/12/18 22:35 Discontinued 800 mg PO NOW ONE levETIRAcetam [Keppra] Med 03/12/18 21:50 Discontinued 500 mg PO .STK-MED ONE levETIRAcetam [Keppra] Med 03/12/18 22:00 Discontinued 500 mg PO BID Seizure Physical Exam - Physical Exam General Appearance: no acute distress, alert Altered Mental Status Higher Functions: alert, oriented x3 EENT: nml eye inspection, PERRL Neck/Back: normal inspection, thyroid normal Respiratory: no resp. distress, breath sounds nml CVS: reg rate & rhythm, heart sounds normal, equal pulses Abdomen: non-tender, nml bowel sounds Skin: warm/dry, normal color Extremities: normal range of motion, non-tender, normal inspection Observed Seizure Activity in ED: other (no seizure observed in ER) Discharge Clincal Impression: Seizure, Orthostatic hypotension Referrals: Primary Doctor,No [Primary Care Provider] - 2 Days Additional Instructions: Increase Keppra to 1500 mg a day Comments: Discussed the importance of staying well hydrated with patient and changing positions slowly. It is important that she follow up with Dr. Mejia in the next couple of days. No seizure activity during this ER visit. Patient is feeling better- voices understanding with discharge instructions. Friend will be with her this evening. Condition: Good Disposition: 01 HOME, SELF-CARE Decision to Admit: NO Decision Time: 23:00 (DISCHARGED TO HOME)
[2018-03-12] MEDS ORDERED: levETIRAcetam 500 MG TABLET PO ONE (21:50)
[2018-03-12] MEDS ORDERED: levETIRAcetam 500 MG TABLET PO SCH (22:00)
[2018-03-12] MEDS ORDERED: 0.9 % SODIUM CHLORIDE 1,000 ML IV ONE ×2 (22:02→23:02)
[2018-03-12] MEDS ORDERED: IBUPROFEN 200 MG TABLET PO ONE (22:35)
[2018-03-13 00:16] VITALS: BP 161/110
== END 2018-03-13 00:10 | disposition home or self-care (01) ==
LOC: ED 21:26
DX: G40.909 Epilepsy, unspecified, not intractable, without status epilepticus (principal); I95.1 Orthostatic hypotension
CPT/HCPCS: J7030 ×2; 96360; 96361; 99284

== ENCOUNTER 2018-03-23 18:47 | Inpatient (IN) | payer OTHER ==
[2018-03-23] MEDS ORDERED: 0.9 % SODIUM CHLORIDE 1,000 ML IV ONE (18:51)
--- NOTE | 2018-03-23 18:59 | ED Physician Documentation ---
General Adult - HISTORIAN Historian: patient, paramedics - HPI Stated Complaint: etoh Chief Complaint: General Adult Additional Information: Said to have been staying at various homes because she is homeless. At current home, she was found on the porch intoxicated/passed out. Police were called to evict her and they called EMS. Pt tells RN that she fell and hit her head. She was seated on a chair and fell to carpeted floor. Did not lose consciousness. Denies pain. Says she drank "a lot" today. - ROS CONST: no problems - PAST HX Past History: hypertension, other (SI, overdose, seizures) Surgeries/Procedures: BTL Allergies/Adverse Reactions: Allergies Allergy/AdvReac Type Severity Reaction Status Date / Time tramadol Allergy Severe seizure Verified 03/23/18 21:14 codeine Allergy Intermediate Itchy Skin Verified 03/23/18 21:14 Home Medications: Ambulatory Orders Medication Instructions Recorded Duloxetine HCl [Duloxetine HCl] 60 mg PO D 03/12/18 Gabapentin [Neurontin] 1,200 mg PO TID 03/12/18 Hydroxyzine HCl [Hydroxyzine HCl] 25 mg PO D 03/12/18 Labetalol HCl [Labetalol HCl] 200 mg PO TID 03/12/18 Levothyroxine Sodium [Synthroid] 175 mcg PO D 03/12/18 Naltrexone Microspheres [Vivitrol] 50 mg PO BID 03/12/18 Prazosin HCl 3 mg PO HS 03/12/18 Spironolactone [Spironolactone] 25 mg PO [id number] 03/12/18 Spironolactone [Spironolactone] 50 mg PO AM 03/12/18 Trazodone HCl 300 mg PO HS 03/12/18 Varenicline Tartrate [Chantix] 1 mg PO BID 03/12/18 levETIRAcetam [Keppra] 500 mg PO BID 03/12/18 Hydrochlorothiazide 25 mg PO D 03/23/18 [Hydrochlorothiazide] - SOCIAL HX Smoking History: cigarettes Alcohol Use: heavy Drug Use: none (denies) - FAMILY HX Family History: No - VITAL SIGNS Vital Signs: Vital Signs Temp Pulse Resp BP Pulse Ox 161/110 03/13/18 00:10 - REVIEWED ASSESSMENTS Nursing Assessment Reviewed: Yes Vitals Reviewed: Yes Progress - Progress Progress: Patient Study Name: JONI ARAGON Date: Mar 23, 2018 7:08:37 PM CDT Modality Type: CT\\SR Gender: F Description: CT BRAIN W/O CONTRAST : 77 Institution: [facility] Physician: ROSEMARY GRIMALDO - AVI CT head History: FALL (Hx) / ITS.REASON etoh; fell and hit head? Multiple axial images of the brain are submitted with reconstructions No comparison studies Head is rotated. No obvious evidence of acute intracranial hemorrhage. No midline shift. No hydrocephalus. Patient is asymmetrically positioned which limits evaluation. Paranasal air sinuses and mastoid air cells are well aerated. No obvious skull fracture. Impression: 1. No evidence of acute intracranial hemorrhage. No midline shift. No hydrocephalus. 2. Motion artifact. Electronically signed on Mar 23, 2018 7:28:59 PM CDT by: Irina Pemberton Not orthostatic, ADDISON 248. Oxygen initiated as pulse ox to 88% when she slept. Ate. Will send home when she is awake and self protective. 0008, has been sleeping. ED Results Lab/Radiology - Orders Orders: ED Orders Category Date Time Status Place IV Lock 1T Care 03/23/18 18:[address] BRAIN W/O CONTRAST Stat Exams 03/23/18 Ordered CBC/PLATELET/DIFF Routine Lab 03/23/18 Ordered CMP Routine Lab 03/23/18 Ordered DRUG SCREEN URINE MEDICAL ONLY Routine Lab 03/23/18 Ordered ETHANOL REF Stat Lab 03/23/18 Ordered PT-INR Routine Lab 03/23/18 Ordered URINALYSIS Routine Lab 03/23/18 Ordered URINE HCG Stat Lab 03/23/18 Uncollected 0.9 % Sodium Chloride [Normal Saline] 1,000 ml Med 03/23/18 18:51 Active IV Q1H General Adult Physical Exam - PHYSICAL EXAM GENERAL APPEARANCE: no distress EENT: TING (EOMI. nystagmus yara) NECK: normal inspection, supple RESPIRATORY: chest non-tender, breath sounds normal CVS: reg rate & rhythm, heart sounds normal ABDOMEN: soft, normal bowel sounds BACK: normal inspection, no CVA tenderness, other (no vertebral tenderness) SKIN: warm/dry, normal color EXTREMITIES: non-tender, no evidence of injury, no edema NEURO: CN's nml as tested, motor nml, sensation nml, other (drowsy. sleeps if undisturbed) Discharge Clincal Impression: ETOH abuse, Fall Referrals: Primary Doctor,No [Primary Care Provider] - 2 Days Condition: Fair Disposition: 01 HOME, SELF-CARE Decision to Admit: NO Decision Time: 00:30
[2018-03-23 20:06] LABS: BASOPHILS % 0.2 (0.0-1.5); EOSINOPHILS % 0.8 % (0.0-6.8); MEAN CORPUSCULAR HEMOGLOBIN 31.9 pg (28.0-34.0); NEUTROPHILS # 5.8 # k/uL (1.4-7.7)
[2018-03-23 20:16] LABS: eGFR (African) > 60; eGFR (Non-African) > 60
[2018-03-23] MEDS ORDERED: IBUPROFEN 400 MG TABLET PO ONE (22:23)
--- NOTE | 2018-03-24 06:26 | Diagnostic Imaging Report ---
ROSEMARY GRIMALDO [facility] [address] [facility] [address] [place], [place]. [address] Report Submission Date: Mar 23, 2018 7:28:59 PM CDT Patient Study Name: JNOI ARAGON Date: Mar 23, 2018 7:08:37 PM CDT Modality Type: CT\SR Gender: F Description: CT BRAIN W/O CONTRAST : 77 Institution: [facility] Physician: ROSEMARY GRIMALDO CT head History: FALL (Hx) / ITS.REASON etoh; fell and hit head? Multiple axial images of the brain are submitted with reconstructions No comparison studies Head is rotated. No obvious evidence of acute intracranial hemorrhage. No midline shift. No hydrocephalus. Patient is asymmetrically positioned which limits evaluation. Paranasal air sinuses and mastoid air cells are well aerated. No obvious skull fracture. Impression: 1. No evidence of acute intracranial hemorrhage. No midline shift. No hydrocephalus. 2. Motion artifact. Electronically signed on Mar 23, 2018 7:28:59 PM CDT by: Irina SEBASTIAN
[2018-03-24] MEDS ORDERED: THIAMINE HCL 100 MG/ML 2ML VIAL ONE (10:08)
[2018-03-24] MEDS ORDERED: 0.9 % SODIUM CHLORIDE 1,000 ML IV ONE (10:08)
[2018-03-24] MEDS ORDERED: FOLIC ACID 5 MG/1 ML ONE (10:09)
[2018-03-24] MEDS ORDERED: MULTIVIT INFUSN,ADULT 1,VIT K 10 ML VIAL IV ONE (10:09)
--- NOTE | 2018-03-24 10:26 | History and Physical Report ---
History of Present Illnes - History of Present Illness Reason for Visit: Alcohol withdrawal History of Present Illness: 42-year-old white female who presented to the emergency room intoxicated after she had been asked to be removed from her boyfriends residence. Patient has a long-standing history of drug and alcohol abuse in the past. Patient has been through approximately 4 to 5 alcohol treatment program previously. Last treatment program was with the [facility]. Patient was able to maintain her sobriety about two weeks ago she started drinking again. Patient is drinking half to a full fifth of burbon a day. Last drink was last night. Patient has had several falls from her recent intoxication. Patient boyfriends stated he did not want her to be living with her longer and called the police to have her evicted. Patient states she has had withdrawal symptoms and withdrawal seizures previously. Last seizure was approximately three months ago. Patient is currently on anticonvulsant medications. Because of the patient previous history of alcohol withdrawal seizures was felt that she need to be admitted as an inpatient for alcohol withdrawal and to manage possible seizures that might occur. - Past Medical History Cardiac: HTN Psych: Addictions (Alcoholism) Endocrine: Hypothyroidism, Other (Polycystic ovarian syndrome, primary hyperaldosternism) - Past Surgical History Past Surgical History: Hysterectomy, Other (multiple ankle surgeries, Vaginal deliver x 4, AP bladder repair, Tonsilectomy) - Past Social History Smoke: 1 pack per day Alcohol: Heavy (dependency) Drugs: None Lives: Homeless Domestic Violence: Negative - Health Maintenance Health Maintenance: Cholesterol, Pneumococcal Vaccine Influenza Vaccine: No Pneumonia Vaccine: Yes Resuscitation Status: Full code - Unable to Obtain History Unable to Obtain: No Review of Systems - Review of Systems Constitutional: Chills, Sweats. negative: Fever, Weakness Eyes: negative: pain, vision change ENT: negative: Ear Pain, Ear Discharge, Nose Pain, Nose Discharge, Nose Congestion, Mouth Pain, Mouth Swelling Respiratory: negative: Cough, Shortness of Breath, Hemoptysis, SOB with Excertion, Pleuritic Pain, Wheezing Cardiovascular: negative: Chest Pain, Palpitations, Orthopnea, Paroxysmal Noc. Dyspnea, Edema, Light Headedness Gastrointestinal: Nausea. negative: Vomiting, Abdominal Pain, Diarrhea, Constipation, Melena, Hematochezia Genitourinary: negative: Dysuria, Frequency, Hematuria Musculoskeletal: Shoulder Pain, Foot Pain. negative: Neck Pain Skin: Other (left periorbital ecchymosis). negative: Rash Neurological: Confusion (mild), Seizures. negative: Weakness, Numbness, Incoordination, Change in Speech - Medications/Allergies Allergies/Adverse Reactions: Allergies Allergy/AdvReac Type Severity Reaction Status Date / Time tramadol Allergy Severe seizure Verified 03/23/18 21:14 codeine Allergy Intermediate Itchy Skin Verified 03/23/18 21:14 Home Medications: Home Medications Hydrochlorothiazide [Hydrochlorothiazide] 25 mg PO D 03/23/18 Exam - Exam General: Alert, Oriented to Person, Oriented to Place, Oriented to Time, Cooperative, Mild distress HEENT: PERRLA, Mouth Mucous membr. moist/[place], Nose Mucous membr. moist/[place], Dentition Normal, Hearing Grossly Normal, Other ( to left facial area, pt denies any abuse). No: Atraumatic Neck: Normal Range of Motion. No: Stridor, Rigidity Carotids: WNL Thyroid: WNL Lungs: Clear to auscultation, Normal air movement, Speaks full Sentences. No: Wheezes, Rales, Rhonchi Cardiovascular: Regular rate, Normal S1, Normal S2, No murmurs Peripheral Edema: none Peripheral Pulses: normal Abdomen: Normal bowel sounds, Soft, No tenderness, No masses Integumentary: Normal, [place], Warm, Dry Extremities: No clubbing, No cyanosis, No edema Neurological: Normal gait, Normal speech, Strength Equal Bilat, Normal tone, Sensation intact, Cranial nerves 3-12 NL Psych/Mental Status: Mental status NL, Mood NL, Appropriate Affect, Intact Judgment, Other (anxious) Assessment/Plan - Assessment/Plan (1) Alcohol withdrawal Status: Acute Current Visit: No Qualifiers: Complication of substance-induced condition: with unspecified complication Qualified Code(s): F10.239 - Alcohol dependence with withdrawal, unspecified Assessment: Will continue with present medications, monitor for siezure activity. Routine alcohol withdrawal per protochol (2) Alcohol abuse Status: Acute Current Visit: Yes Assessment: Thiamine supplement, vitamin supplement (3) Anxiety Status: Chronic Current Visit: No Assessment: monitor (4) Hypertension Status: Chronic Current Visit: No Assessment: continue home med (5) Hypothyroidism (acquired) Status: Chronic Current Visit: No Assessment: continue home med VTE Assessment - RISK FACTOR SCORE VTE RISK FACTOR SCORES: AGE 40-60 YEARS - RISK VTE LOW RISK: SCORE OF 1 OR LESS (RISK PROXIMAL DVT 0.4%) NO PROPHYLAXIS NEEDED
[2018-03-24] MEDS ORDERED: NICOTINE 14mg PATCH.TD24 TD SCH (11:00)
[2018-03-24] MEDS ORDERED: THIAMINE HCL 100 MG, MULTIVIT INFUSN,ADULT 1,VIT K 10 ML, FOLIC ACID 5 MG in 0.9 % SODI... IV SCH (11:00)
[2018-03-24] MEDS ORDERED: DULoxetine HCL 30 MG CAPSULE.DR PO ONE (11:19)
[2018-03-24] MEDS ORDERED: NICOTINE 14mg PATCH.TD24 TD ONE (11:19)
[2018-03-24] MEDS ORDERED: LEVOTHYROXINE SODIUM 100 MCG TABLET ONE (11:20)
[2018-03-24] MEDS ORDERED: GABAPENTIN 300 MG CAPSULE ONE (11:20)
[2018-03-24] MEDS ORDERED: traZODone HCL 50 MG TABLET ONE (11:21)
[2018-03-24] MEDS: NICOTINE 14mg PATCH.TD24 TD SCH (11:44)
[2018-03-24] MEDS: LEVOTHYROXINE SODIUM 100 MCG TABLET PO SCH (11:45)
[2018-03-24] MEDS: LEVOTHYROXINE SODIUM 75 MCG TABLET PO SCH (11:45)
[2018-03-24] MEDS: SPIRONOLACTONE 25 MG TABLET PO SCH (11:45)
[2018-03-24] MEDS: GABAPENTIN 300 MG CAPSULE PO SCH ×3 (11:46→17:31)
[2018-03-24] MEDS: DULoxetine HCL 30 MG CAPSULE.DR PO SCH ×2 (12:26→20:58)
[2018-03-24] MEDS: traZODone HCL 50 MG TABLET PO SCH ×2 (12:27→20:58)
[2018-03-24] MEDS: ONDANSETRON HCL/PF 4 MG/ 2ML VIAL IVP PRN ×2 (12:53→20:59)
[2018-03-24] MEDS ORDERED: CARBAMAZEPINE 200 MG TABLET PO SCH (13:00)
[2018-03-24 13:10] VITALS: BMI 26.4
[2018-03-24] MEDS: HYDROXYZINE HCL 25 MG TABLET PO PRN (16:06)
[2018-03-24] MEDS ORDERED: PHARMACY KEY 1 EACH EACH MC ONE (20:46)
[2018-03-24] MEDS: OXYMETAZOLINE HCL 0.05% NASAL SPRAY NS SCH (20:58)
[2018-03-24] MEDS: ACETAMINOPHEN 325 MG TABLET PO PRN (20:58)
[2018-03-24] MEDS: PRAZOSIN HCL 1 MG CAP PO SCH (20:59)
[2018-03-24] MEDS: METOPROLOL TARTRATE 50 MG TABLET PO SCH (20:59)
[2018-03-24] MEDS: levETIRAcetam 500 MG TABLET PO SCH (20:59)
[2018-03-25] MEDS: LEVOTHYROXINE SODIUM 75 MCG TABLET PO SCH (05:59)
[2018-03-25] MEDS: LEVOTHYROXINE SODIUM 100 MCG TABLET PO SCH (06:00)
[2018-03-25] MEDS: ONDANSETRON HCL/PF 4 MG/ 2ML VIAL IVP PRN ×2 (06:43→16:34)
[2018-03-25] MEDS: HYDROXYZINE HCL 25 MG TABLET PO PRN ×2 (06:44→19:46)
[2018-03-25 07:06] LABS: BASOPHILS % 0.1 (0.0-1.5); EOSINOPHILS % 1.9 % (0.0-6.8); MEAN CORPUSCULAR HEMOGLOBIN 32.3 pg (28.0-34.0); MEAN CORPUSCULAR VOLUME 96.1 fl (80.0-100.0); MONOCYTES % 3.3 % (0.0-11.0)
[2018-03-25] MEDS ORDERED: NICOTINE 14mg PATCH.TD24 TD SCH (09:00)
[2018-03-25 09:10] LABS: eGFR (African) > 60; eGFR (Non-African) > 60
[2018-03-25] MEDS: SPIRONOLACTONE 25 MG TABLET PO SCH ×2 (09:17→12:42)
[2018-03-25] MEDS: HYDROCHLOROTHIAZIDE 25 MG TABLET PO SCH (09:17)
[2018-03-25] MEDS: NICOTINE 14mg PATCH.TD24 TD SCH (09:17)
[2018-03-25] MEDS: OXYMETAZOLINE HCL 0.05% NASAL SPRAY NS SCH ×2 (09:17→20:15)
[2018-03-25] MEDS: METOPROLOL TARTRATE 50 MG TABLET PO SCH ×2 (09:18→20:16)
[2018-03-25] MEDS: THIAMINE HCL 100 MG TABLET PO SCH (09:18)
[2018-03-25] MEDS: levETIRAcetam 500 MG TABLET PO SCH ×2 (09:18→20:16)
[2018-03-25] MEDS: GABAPENTIN 300 MG CAPSULE PO SCH ×3 (09:18→18:13)
[2018-03-25] MEDS ORDERED: HYDRALAZINE HCL 25 MG TABLET PO ONE (09:38)
--- NOTE | 2018-03-25 09:38 | Inpatient Progress Note ---
Subjective - Required Recertification Statement I anticipate X number of days because-include discharge plan: 1 - Review of Systems Subjective: Patient seemed to be doing well at this time. Patient has been having some anxiety and some mild tremor. Patient is not had any seizures. Patient denies any discomfort at this time other than symptoms related to her alcohol withdrawal. Patient has been having some mild anxiety. Patient family has been working on placement for the patient for inpatient rehab for her alcohol and drug dependency. General: Denies: Chills HEENT: Denies: Head Aches Pulmonary: Denies: Dyspnea, Cough Cardiovascular: Chest Pain, Palpitations Gastrointestinal: Denies: Nausea, Vomiting, Abdominal Pain, Diarrhea, Constipation Objective - Exam Vitals and I&O: Vital Signs Temp 97.7 F 03/25/18 05:54 Pulse 80 03/25/18 05:54 Resp 16 03/25/18 05:54 BP 126/78 03/25/18 05:54 Pulse Ox 95 03/25/18 05:54 Intake & Output 03/24/18 03/24/18 03/25/18 11:59 23:59 11:59 Intake Total 1620 980 Balance 1620 980 Weight 78.925 kg Intake: Oral 1620 980 Other: Voiding Method Toilet Toilet # Voids 2 2 # Bowel Movements 1 General: Alert, Oriented to Person, Oriented to Place, Cooperative, Moderate distress HEENT: Atraumatic, PERRLA Neck: Supple Lungs: Clear to auscultation, Normal air movement. No: Wheezes, Rales Cardiovascular: Regular rate, Normal S1, Normal S2 Abdomen: Normal bowel sounds, Soft, No tenderness, No hepatospenomegaly - Results Results: Laboratory Results WBC 5.80 K/ul (4.00-12.00) 03/25/18 06:40 RBC 3.95 M/ul (3.90-5.20) 03/25/18 06:40 Hgb 12.8 g/dL (12.0-16.0) 03/25/18 06:40 Hct 37.9 % (34.5-46.5) 03/25/18 06:40 MCV 96.1 fl (80.0-100.0) 03/25/18 06:40 MCH 32.3 pg (28.0-34.0) 03/25/18 06:40 MCHC 33.7 g/dL (30.0-36.0) 03/25/18 06:40 RDW 13.8 % (11.3-14.3) 03/25/18 06:40 Plt Count 199 K/mm3 (130-400) 03/25/18 06:40 Neut % (Auto) 70.0 % (39.0-79.0) 03/25/18 06:40 Lymph % (Auto) 23.2 % (16.0-50.0) 03/25/18 06:40 Saline % (Auto) 3.3 % (0.0-11.0) 03/25/18 06:40 Eos % (Auto) 1.9 % (0.0-6.8) 03/25/18 06:40 Baso % (Auto) 0.1 (0.0-1.5) 03/25/18 06:40 Neut # (Auto) 4.0 # k/uL (1.4-7.7) 03/25/18 06:40 Lymph # (Auto) 1.3 # k/uL (0.6-4.0) 03/25/18 06:40 Saline # (Auto) 0.2 # k/uL (0.0-0.9) 03/25/18 06:40 Eos # (Auto) 0.1 # k/uL (0.0-0.6) 03/25/18 06:40 Baso # (Auto) 0.0 # k/uL (0.0-0.5) 03/25/18 06:40 Reactive Lymphs % 1.4 % (0.0-5.0) 03/25/18 06:40 Reactive Lymphs # 0.1 # k/uL (0.0-0.8) 03/25/18 06:40 PT 12.3 Seconds (9.4-11.6) H 03/23/18 20:00 INR 1.17 (0.9-1.2) 03/23/18 20:00 Sodium 137 mmol/L (136-145) 03/25/18 06:40 Potassium 3.7 mmol/L (3.5-5.1) 03/25/18 06:40 Chloride 101 mmol/L (98-107) 03/25/18 06:40 Carbon Dioxide 28 mmol/L (22-30) 03/25/18 06:40 BUN 13 mg/dL (7-17) 03/25/18 06:40 Creatinine 0.60 mg/dL (0.52-1.04) 03/25/18 06:40 Estimated Creat Clear 180 03/25/18 06:40 Est GFR ( Amer) > 60 (60-) 03/25/18 06:40 Est GFR (Non-Af Amer) > 60 (60-) 03/25/18 06:40 Glucose 99 mg/dL (74-106) 03/25/18 06:40 Calcium 9.5 mg/dL (8.4-10.2) 03/25/18 06:40 Total Bilirubin 1.4 mg/dL (0.2-1.3) H 03/25/18 06:40 AST 43 U/L (15-46) 03/25/18 06:40 ALT 59 U/L (13-69) 03/25/18 06:40 Alkaline Phosphatase 81 U/L (38-126) 03/25/18 06:40 Total Protein 6.5 g/dL (6.3-8.2) 03/25/18 06:40 Albumin 3.8 g/dL (3.5-5.0) 03/25/18 06:40 Ethyl Alcohol 242.4 mg/dL (0.0-10.0) H 03/23/18 21:27 Assessment/Plan - Assessment/Plan (1) Alcohol withdrawal Status: Acute Qualifiers: Complication of substance-induced condition: with unspecified complication Qualified Code(s): F10.239 - Alcohol dependence with withdrawal, unspecified Assessment: Stable withdrawal at this time. (2) Alcohol abuse Status: Acute Assessment: Arranging for inpatient alcohol rehabilitation. (3) Anxiety Status: Chronic (4) Hypertension Status: Chronic (5) Hypothyroidism (acquired) Status: Chronic
[2018-03-25] MEDS: LORazepam 1 MG TABLET PO SCH ×5 (10:49→18:12)
[2018-03-25] MEDS: ACETAMINOPHEN 325 MG TABLET PO PRN (16:34)
--- NOTE | 2018-03-25 16:50 | Diagnostic Imaging Report ---
[facility]/MED SURG [facility] [address] [facility] [address] [address] Report Submission Date: Mar 25, 2018 11:11:00 AM CDT Patient Study Name: JONI ARAGON Date: Mar 25, 2018 10:47:23 AM CDT Modality Type: DX Gender: F Description: CHEST : 77 Institution: [facility] Physician: SAIMA AGOSTO/MED SURG Examination: Plain film left ribs History: LEFT RIBS, PAIN IN LEFT RIBS AFTER FALL ON Friday03/23/18 (Hx) Findings: 3 views of the left ribs demonstrates normal cortical margins. No fracture or dislocation. Underlying parenchymal without abnormality. Impression: No rib fracture/abnormality. Electronically signed on Mar 25, 2018 11:11:00 AM CDT by: Grant SEBASTIAN
[2018-03-25] MEDS ORDERED: LORazepam 1 MG TABLET PO PRN ×2 (19:40→23:05)
[2018-03-25] MEDS ORDERED: HYDRALAZINE HCL 25 MG TABLET PO PRN (19:44)
[2018-03-25] MEDS: DULoxetine HCL 30 MG CAPSULE.DR PO SCH (20:15)
[2018-03-25] MEDS: LORazepam 1 MG TABLET PO PRN (20:17)
[2018-03-25] MEDS: PRAZOSIN HCL 1 MG CAP PO SCH (20:18)
[2018-03-25] MEDS: traZODone HCL 50 MG TABLET PO SCH (21:32)
[2018-03-26] MEDS: ONDANSETRON HCL/PF 4 MG/ 2ML VIAL IVP PRN (00:42)
[2018-03-26] MEDS: ACETAMINOPHEN 325 MG TABLET PO PRN (00:48)
[2018-03-26] MEDS: LORazepam 1 MG TABLET PO PRN ×2 (00:49→06:23)
[2018-03-26] MEDS: HYDROXYZINE HCL 25 MG TABLET PO PRN (03:36)
[2018-03-26] MEDS: LEVOTHYROXINE SODIUM 75 MCG TABLET PO SCH (06:29)
[2018-03-26] MEDS: LEVOTHYROXINE SODIUM 100 MCG TABLET PO SCH (06:29)
[2018-03-26] MEDS ORDERED: ONDANSETRON HCL 4 MG TAB.RAPDIS PO PRN (07:37)
[2018-03-26 09:02] VITALS: BP 162/98
[2018-03-26] MEDS: GABAPENTIN 300 MG CAPSULE PO SCH (09:09)
[2018-03-26] MEDS: levETIRAcetam 500 MG TABLET PO SCH (09:11)
[2018-03-26] MEDS: METOPROLOL TARTRATE 50 MG TABLET PO SCH (09:12)
[2018-03-26] MEDS: SPIRONOLACTONE 25 MG TABLET PO SCH (09:12)
[2018-03-26] MEDS: HYDROCHLOROTHIAZIDE 25 MG TABLET PO SCH (09:13)
[2018-03-26] MEDS: NICOTINE 14mg PATCH.TD24 TD SCH (09:14)
[2018-03-26] MEDS: THIAMINE HCL 100 MG TABLET PO SCH (09:14)
[2018-03-26] MEDS: OXYMETAZOLINE HCL 0.05% NASAL SPRAY NS SCH (09:14)
--- NOTE | 2018-04-12 19:41 | Discharge Summary ---
Discharge Summary - Discharge Sumary History of Present Illness: 42-year-old white female who presented to the emergency room intoxicated after she had been asked to be removed from her boyfriends residence. Patient has a long-standing history of drug and alcohol abuse in the past. Patient has been through approximately 4 to 5 alcohol treatment program previously. Last treatment program was with the [facility]. Patient was able to maintain her sobriety about two weeks ago she started drinking again. Patient is drinking half to a full fifth of burbon a day. Last drink was last night. Patient has had several falls from her recent intoxication. Patient boyfriends stated he did not want her to be living with her longer and called the police to have her evicted. Patient states she has had withdrawal symptoms and withdrawal seizures previously. Last seizure was approximately three months ago. Patient is currently on anticonvulsant medications. Because of the patient previous history of alcohol withdrawal seizures was felt that she need to be admitted as an inpatient for alcohol withdrawal and to manage possible seizures that might occur. Condition at Discharge: Stable Home Medications: Ambulatory Orders Medication Instructions Recorded Duloxetine HCl 60 mg PO D 03/12/18 Gabapentin [Neurontin] 1,200 mg PO TID 03/12/18 Hydroxyzine HCl 25 mg PO D 03/12/18 Labetalol HCl 200 mg PO TID 03/12/18 Levothyroxine Sodium [Synthroid] 175 mcg PO D 03/12/18 Naltrexone Microspheres [Vivitrol] 50 mg PO BID 03/12/18 Prazosin HCl 3 mg PO HS 03/12/18 Spironolactone 50 mg PO AM 03/12/18 levETIRAcetam [Keppra] 500 mg PO BID 03/12/18 Hydrochlorothiazide 25 mg PO D 03/23/18 Thiamine HCl [Vitamin B-1] 100 mg PO D tablet 03/26/18 Consultations this Visit: None Procedures this Visit: None Allergies/Adverse Reactions: Allergies Allergy/AdvReac Type Severity Reaction Status Date / Time tramadol Allergy Severe seizure Verified 04/12/18 18:15 codeine Allergy Intermediate Itchy Skin Verified 04/12/18 18:15 Discharge Summary: Patient was started on IV fluids with a banana bag and then followed up with [facility] therapy. Patient was started on alcohol withdrawal protocol. Patient did well. Patient did feel at times that she might have a seizure but never did have a seizure. Initially patient liver enzymes were elevated by the time to discharge. Normalized. I did spend some time talking to the patient about further rehab services. Patient stated her family was working on getting her rehab services. At the time to discharge patient did have a plan where to go. It was felt that the patient could be safely discharged and followed on an outpatient basis. Patient was discharged in stable condition. - Final Diagnosis (1) Alcohol withdrawal Problems: stable, no DTs or seizures (3) Anxiety Problems: stable
== END 2018-03-26 12:20 | disposition home or self-care (01) | DRG 897 ==
LOC: ED 18:47 → SOUTH 03-24 09:42
PROVIDERS: ADMIT Family Medicine; ATTEND Family Medicine
DX: F10.239 Alcohol dependence with withdrawal, unspecified (principal); F41.9 Anxiety disorder, unspecified; I10 Essential (primary) hypertension; E03.9 Hypothyroidism, unspecified; F10.20 Alcohol dependence, uncomplicated; F19.90 Other psychoactive substance use, unspecified, uncomplicated
CPT/HCPCS: 36415; 70450; 71100; 80053; 85025; 85610; A9270; G0480; J2405; J3411; J3490; J7030; 80320; 96365; 99232; 99238; S1016

== ENCOUNTER 2018-04-12 17:35 | Emergency (ER) | payer OTHER ==
--- NOTE | 2018-04-12 17:44 | ED Physician Documentation ---
Foot Injury - HISTORIAN Historian: patient - HPI Stated Complaint: foot pain after seizure per her report Chief Complaint: Lower Extremity Problem Onset: days ago (2) Where: home Severity: mild Context: fall (she reports she had a seizure from alcohol withdrawl ) Associated Symptoms:: swelling, seizure Further Comments: yes (She reports two days ago she had a seizure from alcohol withdrawl and she fell hurting her foot. States then this afternoon she has had increasing pain (on top of foot and lateral sides) and increased swelling. She was able to walk from the car to the ER did request a wheelchair after that walk due to pain. She has not used ice or OTC meds for the pain. No other complaints) - ROS CONST: no problems MS/SKIN/LYMPH: none - PAST HX Past History: other (seizure from alcohol withdrawl ) Immunizations: UTD Allergies/Adverse Reactions: Allergies Allergy/AdvReac Type Severity Reaction Status Date / Time tramadol Allergy Severe seizure Verified 04/12/18 18:15 codeine Allergy Intermediate Itchy Skin Verified 04/12/18 18:15 Home Medications: Ambulatory Orders Medication Instructions Recorded Duloxetine HCl 60 mg PO D 03/12/18 Gabapentin [Neurontin] 1,200 mg PO TID 03/12/18 Hydroxyzine HCl 25 mg PO D 03/12/18 Labetalol HCl 200 mg PO TID 03/12/18 Levothyroxine Sodium [Synthroid] 175 mcg PO D 03/12/18 Naltrexone Microspheres [Vivitrol] 50 mg PO BID 03/12/18 Prazosin HCl 3 mg PO HS 03/12/18 Spironolactone 50 mg PO AM 03/12/18 levETIRAcetam [Keppra] 500 mg PO BID 03/12/18 Hydrochlorothiazide 25 mg PO D 03/23/18 Thiamine HCl [Vitamin B-1] 100 mg PO D tablet 03/26/18 - SOCIAL HX Smoking History: cigarettes Alcohol Use: sober (for 4 days) Drug Use: none - FAMILY HX Family History: none - VITAL SIGNS Vital Signs: Vital Signs Temp Pulse Resp BP Pulse Ox 134/99 03/26/18 14:00 - REVIEWED ASSESSMENTS Nursing Assessment Reviewed: Yes Vitals Reviewed: Yes Progress - Progress Progress: 1828: discussed findings and plan. She is agreeable DG ED Results Lab/Radiology - Radiology Radiology Impressions: Left ankle 3 views Date of Exam: April 12, 2018. History: LT ANKLE/FOOT PAIN AND SWELLING,PT HAD SEIZURE AND NOT SURE HOW INJURY HAPPENED (Hx) / ITS.REASON Fall/pain/swelling Findings: There is no evidence of acute fracture or dislocation. The tibiotalar alignment is maintained. The bones of the hindfoot are intact. Impression: No acute osseous abnormality. Electronically signed on Apr 12, 2018 6:17:48 PM CDT by: Cecilio Llanes Left foot 3 views Date of Exam: April 12, 2018. History: LT ANKLE/FOOT PAIN AND SWELLING,PT HAD SEIZURE AND NOT SURE HOW INJURY HAPPENED (Hx) / ITS.REASON fall and pain with swelling Findings: No acute fracture or dislocation is identified. The metatarsals and phalanges are intact. The tibiotalar alignment is maintained. Impression: No acute osseous abnormality. Electronically signed on Apr 12, 2018 6:20:14 PM CDT by: Cecilio Llanes - Orders Orders: ED Orders Category Date Time Status ANKLE 3 VIEWS OR MORE [RAD] Stat Exams 04/12/18 Ordered FOOT 3 VIEWS OR MORE [RAD] Stat Exams 04/12/18 Ordered Foot Injury Physical Exam - Physical Exam General Appearance: no acute distress, alert Foot: right foot: non-tender, normal inspection, normal range of motion, no evidence of injury, abrasions/lacerations, left foot: bone tenderness, deformity , limited range of motion, pain, soft tissue tenderness, swelling, N/A: infection, nail injury, nodule Ankle: bilateral: non-tender, normal inspection, normal range of motion, no evidence of injury Gait: limited by pain, unable to bear weight (on her left foot per her she did walk into the ER ) Neuro: sensation nml, motor nml Vascular: no vascular compromise Tendons: tendon function nml Leg/Knee/Thigh: uninjured above ankle Skin: intact, warm Head/ENT: nml inspection Neck/Back: nml inspection, non-tender Resp/CVS: chest non-tender, breath sounds nml, heart sounds nml, no resp. distress, lungs clear, reg. rate & rhythm Abdomen: non-tender Discharge Clincal Impression: Foot pain, left Referrals: Xavi Dunlap MD [Primary Care Provider] - 2 Days Additional Instructions: 1. Elevate and ice foot 2. Tylenol or Ibuprofen for pain 3. See PCP mid week 4. Return to ER for any concerns Condition: Stable Disposition: 01 HOME, SELF-CARE Decision to Admit: NO Date of Decison to Admit: 04/12/18 Decision Time: 18:31
[2018-04-12] MEDS ORDERED: MAGNESIUM, ALUMINUM HYDROXIDE 30 ML UDC PO ONE ×2 (18:04)
[2018-04-12 18:14] VITALS: BP 108/67
--- NOTE | 2018-04-12 18:23 | Diagnostic Imaging Report ---
ERICH HUSAIN [facility] [address] [facility] [address] [place], [place]. [address] Report Submission Date: Apr 12, 2018 6:17:48 PM CDT Patient Study Name: JONI ARAGON Date: Apr 12, 2018 5:45:15 PM CDT Modality Type: DX Gender: F Description: LOWER EXTREMITY : 77 Institution: [facility] Physician: ERICH HUSAIN Left ankle 3 views Date of Exam: April 12, 2018. History: LT ANKLE/FOOT PAIN AND SWELLING,PT HAD SEIZURE AND NOT SURE HOW INJURY HAPPENED (Hx) / ITS.REASON Fall/pain/swelling Findings: There is no evidence of acute fracture or dislocation. The tibiotalar alignment is maintained. The bones of the hindfoot are intact. Impression: No acute osseous abnormality. Electronically signed on Apr 12, 2018 6:17:48 PM CDT by: Cecilio SEBASTIAN
--- NOTE | 2018-04-12 18:24 | Diagnostic Imaging Report ---
ERICH HUSAIN [facility] [address] [facility] [address] [place], [place]. [address] Report Submission Date: Apr 12, 2018 6:20:14 PM CDT Patient Study Name: JONI ARAGON Date: Apr 12, 2018 5:48:27 PM CDT Modality Type: DX Gender: F Description: LOWER EXTREMITY : 77 Institution: [facility] Physician: ERICH HUSAIN Left foot 3 views Date of Exam: April 12, 2018. History: LT ANKLE/FOOT PAIN AND SWELLING,PT HAD SEIZURE AND NOT SURE HOW INJURY HAPPENED (Hx) / ITS.REASON fall and pain with swelling Findings: No acute fracture or dislocation is identified. The metatarsals and phalanges are intact. The tibiotalar alignment is maintained. Impression: No acute osseous abnormality. Electronically signed on Apr 12, 2018 6:20:14 PM CDT by: Cecilio SEBASTIAN
[2018-04-12] MEDS ORDERED: KETOROLAC TROMETHAMINE 60 MG/2 ML VIAL IM ONE (18:25)
== END 2018-04-12 18:46 | disposition home or self-care (01) ==
LOC: ED 17:35
DX: M79.672 Pain in left foot (principal)
CPT/HCPCS: 73610; 73630; J1885; 96372; 99284

== ENCOUNTER 2018-05-13 20:33 | Observation (INO) | payer OTHER ==
--- NOTE | 2018-05-13 20:41 | ED Physician Documentation ---
Fall - HISTORIAN Historian: patient - HPI Stated Complaint: alcohol intoxication and fall Chief Complaint: Altered Mental Status Onset: just prior to arrival Where: home Context: other (intoxicated ) r: mild Associated Symptoms:: no loss of consciousness Location of Pain/Injury: head (left side ) Injury to Right Extremity: none Injury to Left Extremity: none Further Comments: yes (per mom she was drinking enedelia all day long. She states she just fell and hit her head on the door . She denies any LOC. She is aware of place and time. she thinks it is friday. She denies any head pain except to specific area with palpaiton.) - ROS CONST: no problems NEURO: denies: dizziness, anxiety, depression MS/SKIN/LYMPH: denies: weakness, numbness, neck pain, back pain, ankle swelling , leg swelling, rash EYES/ENT: denies: problems with vision CVS/RESP: denies: chest pain, shortness of breath, palpitations GI/: denies: problems urinating, nausea, vomiting - PAST HX Past History: none Immunizations: referred to PCP Allergies/Adverse Reactions: Allergies Allergy/AdvReac Type Severity Reaction Status Date / Time tramadol Allergy Severe seizure Verified 05/13/18 21:01 codeine Allergy Intermediate Itchy Skin Verified 05/13/18 21:01 Home Medications: Ambulatory Orders Medication Instructions Recorded Duloxetine HCl 60 mg PO D 03/12/18 Gabapentin [Neurontin] 1,200 mg PO TID 03/12/18 Hydroxyzine HCl 25 mg PO D 03/12/18 Labetalol HCl 200 mg PO TID 03/12/18 Levothyroxine Sodium [Synthroid] 175 mcg PO D 03/12/18 Naltrexone Microspheres [Vivitrol] 50 mg PO BID 03/12/18 Prazosin HCl 3 mg PO HS 03/12/18 Spironolactone 50 mg PO AM 03/12/18 levETIRAcetam [Keppra] 500 mg PO BID 03/12/18 Hydrochlorothiazide 25 mg PO D 03/23/18 Thiamine HCl [Vitamin B-1] 100 mg PO D tablet 03/26/18 - SOCIAL HX Smoking History: cigarettes Alcohol Use: heavy Drug Use: none - FAMILY HX Family History: none - VITAL SIGNS Vital Signs: Vital Signs Temp Pulse Resp BP Pulse Ox 108/67 04/12/18 18:46 - REVIEWED ASSESSMENTS Nursing Assessment Reviewed: Yes Vitals Reviewed: Yes Progress - Progress Progress: 2150: discussed the case with Nayana DU about observation admission. She is agreeable DG ED Results Lab/Radiology - Radiology Radiology Impressions: CT head without contrast History: Fell and hit back of head. Intoxicated. Technique: Axial images were obtained from the skullbase to the vertex without IV contrast. Findings: The ventricular system is normal in size and configuration. There is normal parenchymal attenuation. There is no positive mass effect or intra/extra- axial hemorrhage. Coarse benign pineal calcifications are present. There is soft tissue swelling of the scalp overlying the left parietal convexity. No skull fracture is seen. Visualized paranasal sinuses and mastoid air cells are clear. Impression: No intracranial abnormality. Soft tissue swelling of the left parietal scalp without skull fracture. Electronically signed on May 13, 2018 9:38:12 PM CDT by: Yara Lou Physical Exam - Physical Exam General Appearance: no acute distress, alert Head: non-tender, no swelling (area on left lateral head with swelling and pain with palpation areas raised approx 3 cm without laceration ) Neck: non-tender, painless ROM Eye: TING ENT: nml external inspection Resp/CVS: chest non-tender, breath sounds nml, no resp. 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, reflexes nml, woodworking shop laborer symmetrical Discharge Clincal Impression: Alcohol withdrawal Qualifiers: Complication of substance-induced condition: uncomplicated Qualified Code(s): F10.230 - Alcohol dependence with withdrawal, uncomplicated Acute alcohol intoxication Qualifiers: Complication of substance-induced condition: uncomplicated Qualified Code(s): F10.929 - Alcohol use, unspecified with intoxication, unspecified Fall Qualifiers: Encounter type: initial encounter Qualified Code(s): W19.XXXA - Unspecified fall, initial encounter Condition: Stable Disposition: ADMITTED INPATIENT Decision to Admit: [id number] Date of Decison to Admit: 05/13/18 Decision Time: 21:50
[2018-05-13] MEDS ORDERED: THIAMINE HCL 100 MG, MULTIVIT INFUSN,ADULT 1,VIT K 10 ML, FOLIC ACID 5 MG in 0.9 % SODI... IV SCH (21:00)
[2018-05-13] MEDS ORDERED: MULTIVIT INFUSN,ADULT 1,VIT K 10 ML VIAL IV ONE (21:05)
[2018-05-13] MEDS ORDERED: THIAMINE HCL 100 MG/ML 2ML VIAL ONE (21:05)
[2018-05-13] MEDS ORDERED: FOLIC ACID 5 MG/1 ML ONE (21:05)
[2018-05-13] MEDS ORDERED: 0.9 % SODIUM CHLORIDE 1,000 ML IV ONE (21:05)
[2018-05-13 21:17] LABS: BASOPHILS % 0.2 (0.0-1.5); EOSINOPHILS % 1.5 % (0.0-6.8); MEAN CORPUSCULAR HEMOGLOBIN 32.5 pg (28.0-34.0); MEAN CORPUSCULAR VOLUME 96.4 fl (80.0-100.0); MONOCYTES % 2.7 % (0.0-11.0); NEUTROPHILS # 5.6 # k/uL (1.4-7.7)
[2018-05-13 21:31] LABS: eGFR (African) > 60; eGFR (Non-African) > 60
--- NOTE | 2018-05-13 21:43 | Diagnostic Imaging Report ---
ERICH HUSAIN [facility] [address] [facility] [address] [place], [place]. [address] Report Submission Date: May 13, 2018 9:38:12 PM CDT Patient Study Name: JONI ARAGON Date: May 13, 2018 9:01:38 PM CDT Modality Type: CT Gender: F Description: CT BRAIN W/O CONTRAST : 77 Institution: [facility] Physician: ERICH HUSAIN CT head without contrast History: Fell and hit back of head. Intoxicated. Technique: Axial images were obtained from the skullbase to the vertex without IV contrast. Findings: The ventricular system is normal in size and configuration. There is normal parenchymal attenuation. There is no positive mass effect or intra/ extra-axial hemorrhage. Coarse benign pineal calcifications are present. There is soft tissue swelling of the scalp overlying the left parietal convexity. No skull fracture is seen. Visualized paranasal sinuses and mastoid air cells are clear. Impression: No intracranial abnormality. Soft tissue swelling of the left parietal scalp without skull fracture. Electronically signed on May 13, 2018 9:38:12 PM CDT by: Yara SEBASTIAN
[2018-05-13] MEDS ORDERED: LORazepam 2 MG/ML VIAL IVP PRN (22:28)
[2018-05-13 22:51] VITALS: BMI 27.1
[2018-05-13] MEDS: LEVOTHYROXINE SODIUM 100 MCG TABLET PO SCH (23:11)
[2018-05-13] MEDS: PRAZOSIN HCL 1 MG CAP PO SCH (23:11)
[2018-05-13] MEDS: traZODone HCL 50 MG TABLET PO SCH (23:11)
[2018-05-13] MEDS ORDERED: traZODone HCL 50 MG TABLET PO SCH (23:45)
[2018-05-14] MEDS ORDERED: LEVOTHYROXINE SODIUM 25 MCG TABLET ONE (05:17)
[2018-05-14] MEDS: LEVOTHYROXINE SODIUM 100 MCG TABLET PO SCH (06:23)
[2018-05-14 07:54] LABS: BASOPHILS % 0.2 (0.0-1.5); EOSINOPHILS % 1.3 % (0.0-6.8); MEAN CORPUSCULAR HEMOGLOBIN 31.8 pg (28.0-34.0); MEAN CORPUSCULAR VOLUME 96.2 fl (80.0-100.0); MONOCYTES % 3.4 % (0.0-11.0); NEUTROPHILS # 6.5 # k/uL (1.4-7.7)
--- NOTE | 2018-05-14 08:29 | Inpatient Progress Note ---
Subjective - Required Recertification Statement I anticipate X number of days because-include discharge plan: 1 - Review of Systems Events since last encounter: Sarah presented to the ER last night after falling backwards and hitting her head on a door. Her CT scan was found to be negative for fracture or bleed, however did show parietal scalp swelling. She was also found to have a slight bump in her creatinine and to have a ethyl alcohol level of 329. Mom states she had been drinking enedelia all day and was back and forth on going to rehab. Today she notes a mild headache. She denies any changes in her vision, or confusion. This morning when asked about the fall patient states that she does not remember falling. She states she had been drinking most of the day. This morning she is still on the fence about going to rehab and notes it depends on where she could get in. She states she would be willing to go back to [place]. Her mom has called and has found her a spot in a nursing home rehab near [place]. She is unsure if this is the best option for her due to the jain ties with the organization and the length of the stay. She states she is willing to work with criminal justice social worker to try to find a placement in a rehab center. She states she is feeling fine this morning other than a mild headache. Subjective: Patient was admitted over night for observation after presenting to the ER after falling and hitting her head while intoxicated. General: Fatigue HEENT: Head Aches. Denies: Visual Changes, Sinus Congestion, Sore Throat Pulmonary: Denies: Dyspnea, Cough Cardiovascular: Denies: Chest Pain, Palpitations Gastrointestinal: Nausea (mild ). Denies: Vomiting, Abdominal Pain Genitourinary: Denies: Dysuria Musculoskeletal: Denies: Neck Pain, Shoulder Pain, Back Pain, Foot Pain Neurological: Denies: Weakness, Numbness, Incoordination, Change in Speech, Confusion Objective - Exam Vitals and I&O: Vital Signs Temp 97.4 F L 05/14/18 06:00 Pulse 118 H 05/14/18 06:00 Resp 16 05/14/18 06:00 BP 146/81 05/14/18 06:00 Pulse Ox 100 05/14/18 06:00 Intake & Output 05/13/18 05/13/18 05/14/18 11:59 23:59 11:59 Intake Total 1200 Balance 1200 Weight 83.23 kg Intake: IV 800 Left Hand 800 Oral 400 Other: Voiding Method Toilet # Voids 2 # Bowel Movements 0 General: Alert, Oriented to Person, Oriented to Place, Oriented to Time, Cooperative, No acute distress, Average Body Habits HEENT: PERRLA, EOMI, Dentition Normal, Hearing Grossly Normal. No: Atraumatic ( hematoma and parietal scalp swelling to the right posterior scalp - tender to palpation), Mouth Mucous membr. moist/[place], Nose Mucous membr. moist/[place], Pharyngeal Erythema, Tonsillar Exudate, Tonsillar Swelling Neck: Supple Lungs: Clear to auscultation, Normal air movement, Speaks full Sentences. No: Respiratory Distress, Wheezes, Rales, Rhonchi Cardiovascular: Regular rate, Normal S1, Normal S2, No murmurs. No: Murmur Abdomen: Normal bowel sounds, Soft, No tenderness, No masses Extremities: No: No clubbing, No cyanosis, No edema Skin: Normal, [place], Dry, Other (multpile tattoos) Neurological: Normal gait, Normal speech, Strength Equal Bilat, Normal tone, Sensation intact. No: Generalized Weakness Psych/Mental Status: Mental status NL, Mood NL, Appropriate Affect, Intact Judgment Other physical findings: Laboratory Tests 05/13/18 05/13/18 05/14/18 20:54 20:54 07:30 WBC 8.90 8.60 RBC 4.14 3.61 L Hgb 13.5 11.5 L Hct 39.9 34.7 MCV 96.4 96.2 MCH 32.5 31.8 MCHC 33.7 33.0 RDW 12.9 13.0 Plt Count 280 224 Neut % (Auto) 62.1 75.9 Lymph % (Auto) 31.7 17.7 [place] % (Auto) 2.7 3.4 Eos % (Auto) 1.5 1.3 Baso % (Auto) 0.2 0.2 Neut # (Auto) 5.6 6.5 Lymph # (Auto) 2.8 1.5 [place] # (Auto) 0.2 0.3 Eos # (Auto) 0.1 0.1 Baso # (Auto) 0.0 0.0 Reactive Lymphs % 1.8 1.4 Reactive Lymphs # 0.2 0.1 Sodium 148 H Potassium 3.9 Chloride 112 H Carbon Dioxide 22 BUN 17 Creatinine 1.40 H Estimated Creat Clear 66 Est GFR ( Amer) > 60 Est GFR (Non-Af Amer) > 60 Glucose 92 Calcium 9.3 Total Bilirubin 0.1 L AST 22 ALT 28 Alkaline Phosphatase 78 Total Protein 7.8 Albumin 4.4 Ethyl Alcohol > 300.0 H 05/14/18 07:30 WBC RBC Hgb Hct MCV MCH MCHC RDW Plt Count Neut % (Auto) Lymph % (Auto) [place] % (Auto) Eos % (Auto) Baso % (Auto) Neut # (Auto) Lymph # (Auto) [place] # (Auto) Eos # (Auto) Baso # (Auto) Reactive Lymphs % Reactive Lymphs # Sodium 140 Potassium 4.2 Chloride 113 H Carbon Dioxide 22 BUN 15 Creatinine 0.70 Estimated Creat Clear 163 Est GFR ( Amer) > 60 Est GFR (Non-Af Amer) > 60 Glucose 99 Calcium 8.6 Total Bilirubin < 0.1 L AST 15 ALT 22 Alkaline Phosphatase 69 Total Protein 5.9 L Albumin 3.3 L Ethyl Alcohol - Results Results: Laboratory Results WBC 8.60 K/ul (4.00-12.00) 05/14/18 07:30 RBC 3.61 M/ul (3.90-5.20) L 05/14/18 07:30 Hgb 11.5 g/dL (12.0-16.0) L 05/14/18 07:30 Hct 34.7 % (34.5-46.5) 05/14/18 07:30 MCV 96.2 fl (80.0-100.0) 05/14/18 07:30 MCH 31.8 pg (28.0-34.0) 05/14/18 07:30 MCHC 33.0 g/dL (30.0-36.0) 05/14/18 07:30 RDW 13.0 % (11.3-14.3) 05/14/18 07:30 Plt Count 224 K/mm3 (130-400) 05/14/18 07:30 Neut % (Auto) 75.9 % (39.0-79.0) 05/14/18 07:30 Lymph % (Auto) 17.7 % (16.0-50.0) 05/14/18 07:30 [place] % (Auto) 3.4 % (0.0-11.0) 05/14/18 07:30 Eos % (Auto) 1.3 % (0.0-6.8) 05/14/18 07:30 Baso % (Auto) 0.2 (0.0-1.5) 05/14/18 07:30 Neut # (Auto) 6.5 # k/uL (1.4-7.7) 05/14/18 07:30 Lymph # (Auto) 1.5 # k/uL (0.6-4.0) 05/14/18 07:30 [place] # (Auto) 0.3 # k/uL (0.0-0.9) 05/14/18 07:30 Eos # (Auto) 0.1 # k/uL (0.0-0.6) 05/14/18 07:30 Baso # (Auto) 0.0 # k/uL (0.0-0.5) 05/14/18 07:30 Reactive Lymphs % 1.4 % (0.0-5.0) 05/14/18 07:30 Reactive Lymphs # 0.1 # k/uL (0.0-0.8) 05/14/18 07:30 Sodium 148 mmol/L (136-145) H 05/13/18 20:54 Potassium 3.9 mmol/L (3.5-5.1) 05/13/18 20:54 Chloride 112 mmol/L (98-107) H 05/13/18 20:54 Carbon Dioxide 22 mmol/L (22-30) 05/13/18 20:54 BUN 17 mg/dL (7-17) 05/13/18 20:54 Creatinine 1.40 mg/dL (0.52-1.04) H 05/13/18 20:54 Estimated Creat Clear 66 05/13/18 20:54 Est GFR ( Amer) > 60 (60-) 05/13/18 20:54 Est GFR (Non-Af Amer) > 60 (60-) 05/13/18 20:54 Glucose 92 mg/dL (74-106) 05/13/18 20:54 Calcium 9.3 mg/dL (8.4-10.2) 05/13/18 20:54 Total Bilirubin 0.1 mg/dL (0.2-1.3) L 05/13/18 20:54 AST 22 U/L (15-46) 05/13/18 20:54 ALT 28 U/L (13-69) 05/13/18 20:54 Alkaline Phosphatase 78 U/L (38-126) 05/13/18 20:54 Total Protein 7.8 g/dL (6.3-8.2) 05/13/18 20:54 Albumin 4.4 g/dL (3.5-5.0) 05/13/18 20:54 Ethyl Alcohol 329.8 mg/dL (0.0-10.0) H 05/13/18 20:54 Assessment/Plan - Assessment/Plan (1) Hematoma of right parietal scalp Status: Acute Plan: Ice pack to area. (2) Alcohol abuse Status: Acute Plan: Patient to look into rehab options with criminal justice social worker for locations that she can go to upon discharge this afternoon. Patient to remain on CWIA protocol until discharge, though she has not scored so far this morning.
[2018-05-14 08:30] LABS: eGFR (African) > 60; eGFR (Non-African) > 60
[2018-05-14] MEDS ORDERED: HYDROCHLOROTHIAZIDE 25 MG TABLET PO SCH ×2 (09:00→13:00)
[2018-05-14] MEDS ORDERED: levETIRAcetam 500 MG TABLET PO SCH ×2 (09:00→21:00)
[2018-05-14] MEDS: GABAPENTIN 300 MG CAPSULE PO SCH ×2 (09:04→13:10)
[2018-05-14] MEDS: 0.9 % SODIUM CHLORIDE 1,000 ML IV SCH ×2 (09:23)
[2018-05-14] MEDS ORDERED: METOPROLOL TARTRATE 50 MG TABLET PO ONE (12:46)
[2018-05-14] MEDS ORDERED: LABETALOL HCL 200 MG PO SCH (13:00)
[2018-05-14] MEDS: ACETAMINOPHEN 325 MG TABLET PO PRN ×2 (13:11→20:25)
--- NOTE | 2018-05-14 16:52 | Discharge Summary ---
Discharge Summary - Discharge Sumary History of Present Illness: Patient admitted to observation for acute alcohol intoxication and hematoma of right parietal scalp swelling after fall. She has declined all rehab options presented to her. Her mother will not let her come home. She has contacted her sister who has agreed to come and pick her up on discharge. She states she will consider returning to [facility] in a few weeks when they have a bed opening. Additional Instructions: Continue all home medications except Labetolol. Metropolol per your request was sent to your pharmacy. In addition to lisinopril. Follow up with Dr. Mejia in 2-5 days. Recommend taking a B complex vitamin. As discussed during your visit you should consider entering a rehab facility to aid in recovery. Recommend regular attendance at AA meetings. Condition at Discharge: Stable Home Medications: Ambulatory Orders Medication Instructions Recorded Duloxetine HCl 60 mg PO D 03/12/18 Gabapentin [Neurontin] 1,200 mg PO TID 03/12/18 Hydroxyzine HCl 25 mg PO D 03/12/18 Levothyroxine Sodium [Synthroid] 175 mcg PO D 03/12/18 Naltrexone Microspheres [Vivitrol] 50 mg PO BID 03/12/18 Prazosin HCl 3 mg PO HS 03/12/18 Spironolactone 50 mg PO AM 03/12/18 levETIRAcetam [Keppra] 500 mg PO BID 03/12/18 Hydrochlorothiazide 25 mg PO D 03/23/18 Thiamine HCl [Vitamin B-1] 100 mg PO D tablet 03/26/18 Lisinopril [Prinivil] 10 mg PO DAILY #30 tablet 05/14/18 Consultations this Visit: None Procedures this Visit: None Allergies/Adverse Reactions: Allergies Allergy/AdvReac Type Severity Reaction Status Date / Time tramadol Allergy Severe seizure Verified 05/13/18 21:01 codeine Allergy Intermediate Itchy Skin Verified 05/13/18 21:01
[2018-05-14] MEDS: PRAZOSIN HCL 1 MG CAP PO SCH (20:25)
[2018-05-14] MEDS: traZODone HCL 50 MG TABLET PO SCH (20:25)
[2018-05-14] MEDS ORDERED: PRAZOSIN HCL 1 MG CAP PO SCH (21:00)
[2018-05-14 21:26] VITALS: BP 166/109
== END 2018-05-14 21:59 | disposition home or self-care (01) ==
LOC: ED 20:33 → SOUTH 22:01
PROVIDERS: ADMIT Physician Assistant; ATTEND Physician Assistant
DX: S00.03XA Contusion of scalp, initial encounter (principal); W19.XXXA Unspecified fall, initial encounter; Y93.9 Activity, unspecified; Y92.9 Unspecified place or not applicable; Y99.9 Unspecified external cause status; F10.230 Alcohol dependence with withdrawal, uncomplicated
CPT/HCPCS: 36415; 70450; 80053; 85025; 93005; 96365; 96366; 96374; 99284; A9270; G0378; G0480; J2060; J3411; J3490; J7030; 80320; 99217; 99219; S1016

== ENCOUNTER 2018-05-30 18:10 | Emergency (ER) | payer OTHER ==
--- NOTE | 2018-05-30 18:28 | ED Physician Documentation ---
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 Denies loss of bladder control, pain. Occipital headache which is aching and just began. Admits to drinking 1/2 pint vodka today. Not drowsy. Per EMS, appeared drowsy with sternal rub, completely alert with EMS's mention of ammonia inhalant. Arrives in ER in cuffs, in custody of [facility] PD officer. ETOH 236 per officer. No other modifying factors or associated signs. - ROS CONST: no problems - PAST HX Past History: hypertension, other (seizures) Other History: none Surgeries/Procedures: hysterectomy, other (right ankle fusion, L knee times 2) Allergies/Adverse Reactions: Allergies Allergy/AdvReac Type Severity Reaction Status Date / Time tramadol Allergy Severe seizure Verified 05/13/18 21:01 codeine Allergy Intermediate Itchy Skin Verified 05/13/18 21:01 Home Medications: Ambulatory Orders Medication Instructions Recorded Duloxetine HCl 60 mg PO D 03/12/18 Gabapentin [Neurontin] 1,200 mg PO TID 03/12/18 Hydroxyzine HCl 25 mg PO D 03/12/18 Levothyroxine Sodium [Synthroid] 175 mcg PO D 03/12/18 Naltrexone Microspheres [Vivitrol] 50 mg PO BID 03/12/18 Prazosin HCl 3 mg PO HS 03/12/18 Spironolactone 50 mg PO AM 03/12/18 levETIRAcetam [Keppra] 500 mg PO BID 03/12/18 Hydrochlorothiazide 25 mg PO D 03/23/18 Thiamine HCl [Vitamin B-1] 100 mg PO D tablet 03/26/18 Lisinopril [Prinivil] 10 mg PO DAILY #30 tablet 05/14/18 - SOCIAL HX Smoking History: cigarettes Alcohol Use: heavy - FAMILY HX Family History: No - VITAL SIGNS Vital Signs: Vital Signs Temp Pulse Resp BP Pulse Ox 166/109 05/14/18 21:23 - REVIEWED ASSESSMENTS Nursing Assessment Reviewed: Yes Vitals Reviewed: Yes Progress - Progress Progress: VS stable. Not drowsy. < 100 cc moisture crotch of shorts. Neuro exam unremarkable. Intoxicated. ED Results Lab/Radiology - Orders Orders: ED Orders Category Date Time Status CBC/PLATELET/DIFF Routine Lab 05/30/18 Ordered CMP Routine Lab 05/30/18 Ordered DRUG SCREEN 8,URINE Stat Lab 05/30/18 Ordered URINALYSIS Routine Lab 05/30/18 Ordered Chem Sticks Med 05/30/18 21:00 Ordered 1 each CHEMQID General Adult Physical Exam - PHYSICAL EXAM GENERAL APPEARANCE: mild distress (angry with police) EENT: ENT inspection normal, pharynx normal, no signs of dehydration, TING (nystagmus, EOMI) NECK: normal inspection, supple RESPIRATORY: no resp distress, breath sounds normal CVS: reg rate & rhythm, heart sounds normal ABDOMEN: soft, normal bowel sounds, no distension, non-tender BACK: normal inspection, no CVA tenderness, other (no vertebral tenderness.) SKIN: warm/dry, normal color (scattered aging ecchymoses) EXTREMITIES: non-tender (does not allow left knee to be touched nor left patellar reflex to be checked), normal range of motion (gait and stance), no evidence of injury NEURO: CN's nml as tested, motor nml, sensation nml, other (speech mildly slurred at times. ) Discharge Clincal Impression: Elevated ETOH level Qualifiers: Blood alcohol level: level not specified Qualified Code(s): R78.0 - Finding of alcohol in blood Referrals: Xavi Dunlap MD [Primary Care Provider] - 2 Days Condition: Fair Disposition: 01 HOME, SELF-CARE Decision to Admit: NO Decision Time: 18:35
[2018-05-30 18:35] LABS: BASOPHILS % 0.1 (0.0-1.5); EOSINOPHILS % 1.4 % (0.0-6.8); MEAN CORPUSCULAR HEMOGLOBIN 31.4 pg (28.0-34.0); MONOCYTES % 3.6 % (0.0-11.0); NEUTROPHILS # 4.4 # k/uL (1.4-7.7)
[2018-05-30 18:54] VITALS: BP 120/80
[2018-05-30 19:52] LABS: TOTAL PROTEIN 6.8 g/dL (6.0-8.5)
== END 2018-05-30 18:45 | disposition home or self-care (01) ==
LOC: ED 18:10
DX: R78.0 Finding of alcohol in blood (principal)
CPT/HCPCS: 80053; 80307; 81002; 85025

== ENCOUNTER 2018-07-07 15:45 | Outpatient (CLI) | payer OTHER | END 2018-07-07 15:46 | LOC: CARD 15:45 | PROVIDERS: ATTEND Internal Medicine Cardiovascular Disease | DX: R60.9 Edema, unspecified (principal); I10 Essential (primary) hypertension ==

== ENCOUNTER 2018-08-18 15:28 | Emergency (ER) | payer OTHER ==
[2018-08-18 15:38] VITALS: BP 131/121
[2018-08-18 16:40] LABS: BASOPHILS % 0.5 (0.0-1.5); EOSINOPHILS % 0.8 % (0.0-6.8); MEAN CORPUSCULAR HEMOGLOBIN 29.4 pg (28.0-34.0); MONOCYTES % 4.8 % (0.0-11.0); NEUTROPHILS # 2.4 # k/uL (1.4-7.7)
[2018-08-18] MEDS: 0.9 % SODIUM CHLORIDE 1,000 ML IV ONE (16:45)
[2018-08-18 16:47] LABS: eGFR (Non-African) > 60
[2018-08-18] MEDS: LIDOCAINE 1%/EPINEPHRINE 20ML VIAL IJ ONE (17:00)
--- NOTE | 2018-08-18 17:06 | ED Physician Documentation ---
Fall - HISTORIAN Historian: patient, paramedics - HPI Stated Complaint: Chin laceration Chief Complaint: Fall Onset: today Where: home Further Comments: yes (42 year old female patient brought in via EMS after a fall. Patient cannot recall when she fell, laceration to chin. Patient reports drinking a bottle of lauri today, states she is drinking a bottle every day for the past 7 days. Cannot recall if she lost consciousness. Blood noted on shirt and in hair.) - ROS CONST: no problems (patient denies all ROS questions) NEURO: denies: dizziness, anxiety, depression MS/SKIN/LYMPH: other ("chin hurts") EYES/ENT: none CVS/RESP: none GI/: denies: problems urinating, vomiting - PAST HX Past History: other (HTN) Allergies/Adverse Reactions: Allergies Allergy/AdvReac Type Severity Reaction Status Date / Time tramadol Allergy Severe seizure Verified 08/18/18 15:57 codeine Allergy Intermediate Itchy Skin Verified 08/18/18 15:57 Home Medications: Ambulatory Orders Medication Instructions Recorded Gabapentin [Neurontin] 1,200 mg PO TID 03/12/18 Hydroxyzine HCl 25 mg PO D 03/12/18 Prazosin HCl 3 mg PO HS 03/12/18 Spironolactone 50 mg PO AM 03/12/18 Hydrochlorothiazide 25 mg PO D 03/23/18 Omeprazole 1 tab PO DAILY 08/18/18 Trazodone HCl [Desyrel] 1 tab PO HS 08/18/18 - SOCIAL HX Smoking History: greater than 1 pack/day Alcohol Use: heavy (daily intake) - FAMILY HX Family History: denies: none - VITAL SIGNS Vital Signs: Vital Signs Temp Pulse Resp BP Pulse Ox 98.0 F 96 H 15 131/121 96 08/18/18 15:28 08/18/18 15:28 08/18/18 15:28 08/18/18 15:28 08/18/18 15:28 - REVIEWED ASSESSMENTS Nursing Assessment Reviewed: Yes Vitals Reviewed: Yes Procedures Wound Location: face (chin ) Wound Length: 2 cm Wound's Depth, Shape: linear Wound Explored: clean Irrigated w/ Saline (ccs): 100 Betadine Prep?: No (chlorhexidine) Anesthesia: Lidocaine w/ Epi Volume of Anesthetic: 3 Wound Repaired With: sutures Suture Size/Type: 6:0 Number of Sutures: 3 Sterile Dressing Applied?: Yes Splint Applied?: No Progress - Progress Progress: Lab and CT results reviewed. Patient requesting ETOH abuse treatment placement. Arrangements made with [facility] for admission. call from [facility], cannot take patient due to insurance issue. 1730 Lab initially reported ETOH level of <10. 1730 After discharge ETOH was changed to >330; review of additional lab; showed entire CMP values now changed. na 152, K 3.3, with elevated LFTs. Patient was discharged at 1730 based on initial lab values. Patient would not have been discharged with values now showing in [facility]. No call was made to this provider or nursing with changes in CMP. Patient was discharged with her parents. Kimberly Thornton - restaurant kitchen manager notified. Call to patient's mother - no answer. 175 Call returned from patient's mother. Encourage Mary to take patient to another ER for additional evaluation and redraw of lab. Risk and benefits explained. Verbalized understanding. ED Results Lab/Radiology - Lab Results Lab Results: Lab Results 08/18/18 08/18/18 Unknown 15:32 WBC 4.70 K/ul K/ul (4.00-12.00) RBC 4.42 M/ul M/ul (3.90-5.20) Hgb 13.0 g/dL g/dL (12.0-16.0) Hct 39.1 % % (34.5-46.5) MCV 88.0 fl fl (80.0-100.0) MCH 29.4 pg pg (28.0-34.0) MCHC 33.3 g/dL g/dL (30.0-36.0) RDW 13.8 % % (11.3-14.3) Plt Count 345 K/mm3 K/mm3 (130-400) Neut % (Auto) 50.8 % % (39.0-79.0) Lymph % (Auto) 43.1 % % (16.0-50.0) Alpine % (Auto) 4.8 % % (0.0-11.0) Eos % (Auto) 0.8 % % (0.0-6.8) Baso % (Auto) 0.5 (0.0-1.5) Neut # (Auto) 2.4 # k/uL # k/uL (1.4-7.7) Lymph # (Auto) 2.0 # k/uL # k/uL (0.6-4.0) Alpine # (Auto) 0.2 # k/uL # k/uL (0.0-0.9) Eos # (Auto) 0.0 # k/uL # k/uL (0.0-0.6) Baso # (Auto) 0.0 # k/uL # k/uL (0.0-0.5) Sodium 138 mmol/L mmol/L (136-145) Potassium 3.9 mmol/L mmol/L (3.5-5.1) Chloride 103 mmol/L mmol/L (98-107) Carbon Dioxide 23 mmol/L mmol/L (22-30) BUN 8 mg/dL mg/dL (7-17) Creatinine 0.60 mg/dL mg/dL (0.52-1.04) Estimated Creat Clear 155 Est GFR ( Amer) > 60 (60 - ) Est GFR (Non-Af Amer) > 60 (60 - ) Glucose 93 mg/dL mg/dL (74-106) Calcium 8.7 mg/dL mg/dL (8.4-10.2) Total Bilirubin 0.3 mg/dL mg/dL (0.2-1.3) AST 18 U/L U/L (15-46) ALT 24 U/L U/L (13-69) Alkaline Phosphatase 71 U/L U/L (38-126) Total Protein 7.5 g/dL g/dL (6.3-8.2) Albumin 4.0 g/dL g/dL (3.5-5.0) Ethyl Alcohol < 10.0 mg/dL mg/dL (0.0-10.0) - Radiology Radiology Impressions: HEAD CT WITHOUT CONTRAST HISTORY: Status post fall with headaches COMPARISON: May 13, 2018 TECHNIQUE: Axial images were obtained from the skullbase to the vertex without IV contrast. FINDING: The ventricular system is normal in size and configuration. There is normal parenchymal attenuation. There is no positive mass effect or intra/extra-axial hemorrhage. Visualized paranasal sinuses and mastoid air cells are clear. The calvarium is intact. IMPRESSION: NO INTRACRANIAL ABNORMALITY. Electronically signed on Aug 18, 2018 4:45:50 PM CDT by: Yara Lemon - Orders Orders: ED Orders Category Date Time Status Place IV Lock 1T Care 08/18/18 15:[address] BRAIN W/O CONTRAST Stat Exams 08/18/18 Ordered ALCOHOL MEDICAL USE ONLY Stat Lab 08/18/18 Completed CBC/PLATELET/DIFF Stat Lab 08/18/18 15:32 Completed CMP Stat Lab 08/18/18 Completed URINE HCG Stat Lab 08/18/18 Uncollected Urine drug screen [DRUG SCREEN URINE MEDICAL ONLY] Stat Lab 08/18/18 15:33 Ordered 0.9 % Sodium Chloride [Normal Saline] 1,000 ml Med 08/18/18 16:26 Discontinued IV NOW Lidocaine 1%/Epinephrine [Xylocaine 1%-EPI 1:100,000] Med 08/18/18 16:47 Discontinued 1 ml IJ NOW ONE Fall Physical Exam - Physical Exam General Appearance: mild distress (somnulent) Head: non-tender, no swelling, no obvious injury Neck: non-tender, painless ROM, trachea midline Eye: TING, EOMI, lids & conjunct. nml Resp/CVS: chest non-tender, no ecchymosis, breath sounds nml, no resp. distress, heart sounds nml Abdomen: soft, no organomegaly, normal bowel sounds, no abdominal bruit, no distension Neuro: oriented x3, CN's nml as tested, sensation nml, mood/affect nml, millwright helper nml, reflexes nml, millwright helper symmetrical, other (flat affect) Skin: color nml, no rash, nml palp., dry, other (2 cm laceration to chin) Extremities: atraumatic, pelvis stable, hips non-tender, no pedal edema, nml ROM, nml color/temp - Destinee Coma Score Eyes Open: Spontaneous Speech: Oriented Motor: Obeys Commands Discharge Clincal Impression: Alcohol abuse Referrals: Xavi Dunlap MD [Primary Care Provider] - 2 Days Additional Instructions: Alcohol abuse Stop drinking Attend an AA meeting or check into rehab today. Disposition: 01 HOME, SELF-CARE Decision to Admit: NO Decision Time: 17:30
--- NOTE | 2018-08-18 19:01 | Diagnostic Imaging Report ---
SADIQ MACHUCA (EAP SPECIALIST) - ER [facility] [address] [facility] [address] [place], [place]. [address] Report Submission Date: Aug 18, 2018 4:45:50 PM CDT Patient Study Name: JONI ARAGON Date: Aug 18, 2018 4:29:07 PM CDT Modality Type: CT\SR Gender: F Description: CT BRAIN W/O CONTRAST : 77 Institution: [facility] Physician: SADIQ MACHUCA (EMILY) - ER HEAD CT WITHOUT CONTRAST HISTORY: Status post fall with headaches COMPARISON: May 13, 2018 TECHNIQUE: Axial images were obtained from the skullbase to the vertex without IV contrast. FINDING: The ventricular system is normal in size and configuration. There is normal parenchymal attenuation. There is no positive mass effect or intra/extra-axial hemorrhage. Visualized paranasal sinuses and mastoid air cells are clear. The calvarium is intact. IMPRESSION: NO INTRACRANIAL ABNORMALITY. Electronically signed on Aug 18, 2018 4:45:50 PM CDT by: Yara SEBASTAIN
[2018-08-19 07:52] LABS: CANNABINOIDS NEGATIVE ng/mL (< 50); METHYLENEDIOXYMETHAMPHETAMINE NEGATIVE ng/mL (<500)
[2018-08-19 08:13] LABS: APPEARANCE,URINE CLOUDY (CLEAR); COLOR,URINE AMBER (YELLOW); OCCULT BLOOD,URINE 2+ (NEGATIVE)
== END 2018-08-18 17:30 | disposition home or self-care (01) ==
LOC: ED 15:28
DX: S01.81XA Laceration without foreign body of other part of head, initial encounter (principal); F10.10 Alcohol abuse, uncomplicated; W19.XXXA Unspecified fall, initial encounter; R51 Headache; Y92.019 Unspecified place in single-family (private) house as the place of occurrence of the external cause; Y93.9 Activity, unspecified; Y99.9 Unspecified external cause status
CPT/HCPCS: 70450; 80053; 81002; 81025; 85025; 87086; G0480; G0481; J7030; 12011; 80320; 80377; 96365; 96372; S1016

== ENCOUNTER 2018-10-14 09:56 | Outpatient (CLI) | payer OTHER ==
--- NOTE | 2018-10-14 13:58 | Diagnostic Imaging Report ---
MAGALIE CAMP [facility] [address] [facility] [address] [place] [address]. [id number] Report Submission Date: Oct 14, 2018 1:30:46 PM EMS MANAGER Patient Study Name: JONI ARAGON Date: Oct 14, 2018 10:09:14 AM EMS MANAGER Modality Type: CT\SR Gender: F Description: CT LEG W/O CONTRAST : 77 Institution: [facility] Physician: MAGALIE CAMP Examination: CT extremity. History: Pt states swollen and painful x2 weeks. Pt states twisting ankle on doorstop. (Hx) Comparison exams: None available for direct review. Technique: Axial imaging with sagittal coronal reconstruction. Findings: Significant streak artifact from extensive surgical hardware. Significant tibiotalar and talocalcaneal articular degenerative changes. Lucency involving the medial margin of the cuboid bone. Remaining cortical margins without acute appearing disruption. Generalized ankle soft tissue fullness. Impression: Advanced hindfoot degenerative changes associated with extensive surgical fixation changes/hardware. Lucency involving the medial margin of the cuboid bone: possibly representing acute fracture - correlate with location of discomfort and mechanism of injury. Electronically signed on Oct 14, 2018 1:30:46 PM EMS MANAGER by: Grant SEBASTIAN
== END 2018-10-14 09:58 ==
LOC: RAD 09:56
PROVIDERS: ATTEND Family Medicine
DX: M25.471 Effusion, right ankle (principal); S99.911A Unspecified injury of right ankle, initial encounter
CPT/HCPCS: 73700

== ENCOUNTER 2019-07-09 20:10 | Inpatient (IN) | payer OTHER ==
--- NOTE | 2019-07-09 20:18 | ED Physician Documentation ---
General Adult - HISTORIAN Historian: patient, friend - HPI Stated Complaint: alcohol intoxication Chief Complaint: General Adult Additional Information: Patient presents to ED intoxicated. She was brought by friends who were conc erned about how intoxicated she was. Patient had lost bowel control. She states she has been drinking enedelia since last night along with taking her home medications of neurontin, suboxone, hydrocodone. Friends state they want to get her sobered up so they can take her for treatment in the morning. Onset: hours (24) Timing: still present Severity: severe - ROS CONST: no problems EYES/ENT: none CVS/RESP: denies: chest pain, shortness of breath GI/: denies: vomiting, nausea MS/SKIN/LYMPH: none NEURO/PSYCH: headache - PAST HX Past History: other (polysubstance abuse ) Other History: none Surgeries/Procedures: hysterectomy Allergies/Adverse Reactions: Allergies Allergy/AdvReac Type Severity Reaction Status Date / Time tramadol Allergy Severe seizure Verified 07/09/19 20:38 codeine Allergy Intermediate Itchy Skin Verified 07/09/19 20:38 Home Medications: Ambulatory Orders Medication Instructions Recorded Hydroxyzine HCl 1 tab PO Q6H PRN 02/22/19 Acetaminophen [8Hr Arthritis Pain 650 mg PO PRN 07/09/19 Relief] Buprenorphine HCl/Naloxone HCl 1 tab PO BID 07/09/19 [Zubsolv 8.6-2.1 mg Tablet Sl] Cefdinir 300 mg PO BID 07/09/19 Doxycycline Monohydrate [Mondoxyne 1 cap PO BID 07/09/19 Nl] Ibuprofen 600 mg PO PRN 07/09/19 Ondansetron [Zuplenz] 4 mg PO TID 07/09/19 - SOCIAL HX Smoking History: cigarettes, greater than 1 pack/day Alcohol Use: heavy Drug Use: other (narcotics) - FAMILY HX Family History: No - VITAL SIGNS Vital Signs: Vital Signs Temp Pulse Resp BP Pulse Ox 148/97 02/22/19 22:05 - REVIEWED ASSESSMENTS Nursing Assessment Reviewed: Yes Vitals Reviewed: Yes General Adult Physical Exam - PHYSICAL EXAM GENERAL APPEARANCE: Etoh on breath EENT: nystagmus, other (pupils dilated, equal, sluggish) RESPIRATORY: no resp distress, breath sounds normal CVS: reg rate & rhythm ABDOMEN: soft, normal bowel sounds SKIN: warm/dry, normal color EXTREMITIES: non-tender NEURO: oriented X3 Discharge Clincal Impression: Acute alcohol intoxication Qualifiers: Complication of substance-induced condition: uncomplicated Qualified Code(s): F10.920 - Alcohol use, unspecified with intoxication, uncomplicated Referrals: Stefanie Mejia MD [Primary Care Provider] - 2 Days Condition: Stable Decision to Admit: NO Date of Decison to Admit: 07/09/19 Decision Time: 21:49
[2019-07-09] MEDS ORDERED: THIAMINE HCL 200 MG/2 ML VIAL IV ONE (20:26)
[2019-07-09] MEDS ORDERED: FOLIC ACID 5 MG/1 ML IV ONE (20:26)
[2019-07-09] MEDS ORDERED: 0.9 % SODIUM CHLORIDE 1,000 ML IV ONE ×2 (20:26→21:33)
[2019-07-09] MEDS ORDERED: MULTIVIT INFUSN,ADULT 1,VIT K 10 ML VIAL IV ONE (20:28)
[2019-07-09] MEDS ORDERED: THIAMINE HCL 100 MG, MULTIVIT INFUSN,ADULT 1,VIT K 10 ML, FOLIC ACID 5 MG in 0.9 % SODI... IV ONE (20:28)
[2019-07-09] MEDS ORDERED: THIAMINE HCL 200 MG/2 ML VIAL ONE (21:33)
[2019-07-09] MEDS ORDERED: ONDANSETRON HCL/PF 4 MG/ 2ML VIAL IVP ONE (21:48)
[2019-07-09 22:09] LABS: BASOPHILS % 0.5 % (0.0-1.5); NEUTROPHILS # 3.4 # k/uL (1.4-7.7)
[2019-07-09] MEDS ORDERED: ONDANSETRON HCL/PF 4 MG/ 2ML VIAL IVP PRN (22:37)
[2019-07-09] MEDS ORDERED: PROMETHAZINE HCL 25 MG SUPP.RECT RC PRN (22:37)
[2019-07-09] MEDS ORDERED: cloNIDine HCL 0.1 MG TABLET PO PRN (22:38)
[2019-07-09] MEDS ORDERED: LORazepam 2 MG/ML VIAL IV PRN (22:39)
[2019-07-09] MEDS ORDERED: 0.9 % SODIUM CHLORIDE 1,000 ML IV SCH (22:45)
[2019-07-10] MEDS ORDERED: LORazepam 2 MG/ML VIAL ONE ×3 (01:02→06:17)
[2019-07-10] MEDS ORDERED: cloNIDine HCL 0.1 MG TABLET PO ONE (02:53)
[2019-07-10] MEDS: LORazepam 2 MG/ML VIAL IV PRN ×2 (03:24→06:21)
[2019-07-10 04:59] VITALS: BMI 20.3
--- NOTE | 2019-07-10 07:03 | Discharge Summary ---
Discharge Summary - Discharge [place] Admission Date: 07/09/19 Discharge Date: 07/10/19 Discharge To: Home History of Present Illness: Patient presents to ED intoxicated. She was brought by friends who were concerned about how intoxicated she was. Patient had lost bowel control. She states she has been drinking enedelia since last night along with taking her home medications of neurontin, suboxone, hydrocodone. Friends state they want to get her sobered up so they can take her for treatment in the morning. Condition at Discharge: Stable Home Medications: Ambulatory Orders Medication Instructions Recorded Hydroxyzine HCl 1 tab PO Q6H PRN 02/22/19 Acetaminophen [8Hr Arthritis Pain 650 mg PO PRN 07/09/19 Relief] Buprenorphine HCl/Naloxone HCl 1 tab PO BID 07/09/19 [Zubsolv 8.6-2.1 mg Tablet Sl] Cefdinir 300 mg PO BID 07/09/19 Doxycycline Monohydrate [Mondoxyne 1 cap PO BID 07/09/19 Nl] Ibuprofen 600 mg PO PRN 07/09/19 Ondansetron [Zuplenz] 4 mg PO TID 07/09/19 Consultations this Visit: None Procedures this Visit: None Allergies/Adverse Reactions: Allergies Allergy/AdvReac Type Severity Reaction Status Date / Time tramadol Allergy Severe seizure Verified 07/09/19 20:38 codeine Allergy Intermediate Itchy Skin Verified 07/09/19 20:38 Patient Problems: Current Active Problems Problem Status Onset Acute alcohol intoxication Acute Discharge Summary: Patient presents to ED intoxicated. She was brought by friends who were concerned about how intoxicated she was. Patient had lost bowel control. She states she has been drinking enedelia since last night along with taking her home medications of neurontin, suboxone, hydrocodone. Friends state they want to get her sobered up so they can take her for treatment in the morning. She was admitted. Banana bag was given, followed by NS IVF. Patient required PRN Clonidine for blood pressure control and PRN Ativan for agitation. The following morning patient was coherent and amendable to discharge. Hospital Course: See discharge summary. general: patient awake alert. ENT; TING. Lungs; clear to auscultation bilaterally. CV; RRR. Abd; soft nontender. Ext; no edema
[2019-07-10 07:08] LABS: BASOPHILS % 0.3 % (0.0-1.5); NEUTROPHILS # 2.5 # k/uL (1.4-7.7)
[2019-07-10] MEDS ORDERED: NICOTINE 21mg 1 EACH PATCH.TD24 TD SCH (09:00)
[2019-07-10] MEDS ORDERED: NICOTINE 21mg 1 EACH PATCH.TD24 TD ONE (09:02)
[2019-07-10] MEDS ORDERED: ONDANSETRON HCL/PF 4 MG/ 2ML VIAL ONE (09:11)
[2019-07-10 09:47] VITALS: BP 151/104
== END 2019-07-10 08:45 | disposition home or self-care (01) | DRG 897 ==
LOC: ED 20:10 → SOUTH 22:13
PROVIDERS: ADMIT Physician Assistant Medical; ATTEND Physician Assistant Medical
DX: F10.120 Alcohol abuse with intoxication, uncomplicated (principal); F17.210 Nicotine dependence, cigarettes, uncomplicated; I10 Essential (primary) hypertension; E03.9 Hypothyroidism, unspecified; F41.9 Anxiety disorder, unspecified; Z90.710 Acquired absence of both cervix and uterus; Z88.5 Allergy status to narcotic agent; Z79.899 Other long term (current) drug therapy; Y90.8 Blood alcohol level of 240 mg/100 ml or more
CPT/HCPCS: 85025; G0379; J2060; J2405; J3411; J3490; J7030; 80053; 99221; 99238; S1016

== ENCOUNTER 2019-07-10 16:48 | Emergency (ER) | payer OTHER ==
--- NOTE | 2019-07-10 17:00 | ED Physician Documentation ---
General Adult - HISTORIAN Historian: patient - HPI Stated Complaint: alcohol intoxication, ? benzo use Chief Complaint: General Adult Onset: hours Timing: still present Severity: moderate Further Comments: yes (Pt is a 43 yo female who presented to the ER yesterday in an intoxicated state. Pt was admitted overnight and was d/c'd this am with a plan for family member to take her to rehab, but this did not occur. Instead pt returned home and now states that she drank two fifths of enedelia. She says that she ordinarily drinks a fifth of enedelia daily. Pt has hx polysubstance abuse and is rx'd suboxone, neurontin and hydrocodone. EMT's say pt may have taken benzodiazepine today because she had 3 benzodiapine tablets in her possession this am according to family member or friend. Pt denies taking benzo. Pt appears stable, but intoxicated on presentation. Pt states that she has prescriptions for Ativan and Valium. Pt denies that she was trying to harm herself by this episode of excessive drinking; she denies suicidality.) - ROS CONST: other (intoxication) EYES/ENT: none CVS/RESP: none GI/: none MS/SKIN/LYMPH: none NEURO/PSYCH: other (alcohol intoxication) - PAST HX Past History: other (polysubstance abuse, alcoholism, heavy smoker,) Surgeries/Procedures: hysterectomy Allergies/Adverse Reactions: Allergies Allergy/AdvReac Type Severity Reaction Status Date / Time tramadol Allergy Severe seizure Verified 07/10/19 17:13 codeine Allergy Intermediate Itchy Skin Verified 07/10/19 17:13 Home Medications: Ambulatory Orders Medication Instructions Recorded Ibuprofen 600 mg PO PRN 07/09/19 Ondansetron [Zuplenz] 4 mg PO TID 07/09/19 Diazepam 07/10/19 Duloxetine HCl 60 mg PO DAILY 07/10/19 Hydrochlorothiazide 25 mg PO DAILY 07/10/19 LORazepam [Ativan] 0.5 mg PO TID 07/10/19 Levetiracetam [Keppra] 750 mg PO DAILY 07/10/19 Levothyroxine Sodium [Euthyrox] 175 mcg PO DAILY 07/10/19 Metoprolol Tartrate [Lopressor] 25 mg PO DAILY 07/10/19 Omeprazole 20 mg PO DAILY 07/10/19 Prazosin HCl [Minipress] 3 tab PO HS 07/10/19 - SOCIAL HX Smoking History: greater than 1 pack/day Alcohol Use: heavy Drug Use: other (polysubsance, on rx suboxone; benzodiazepine use) - FAMILY HX Family History: No - VITAL SIGNS Vital Signs: Vital Signs Temp Pulse Resp BP Pulse Ox 151/104 07/10/19 09:45 - REVIEWED ASSESSMENTS Nursing Assessment Reviewed: Yes Vitals Reviewed: Yes Progress - Progress Progress: UDS - prelim pos for PCP and Benzo KCl 40 mEq po Zofran 4 mg IV NS 1 L IVF ETOH = 276.4 Pt d/c'd AMA with family member, adult son. Family understands that pt not have benzodiazepine. General Adult Physical Exam - PHYSICAL EXAM GENERAL APPEARANCE: appears intoxicated EENT: eye inspection normal, ENT inspection normal, pharynx normal NECK: normal inspection, supple RESPIRATORY: no resp distress, chest non-tender, breath sounds normal CVS: reg rate & rhythm, heart sounds normal ABDOMEN: soft, no organomegaly, normal bowel sounds BACK: normal inspection, no CVA tenderness SKIN: warm/dry, normal color EXTREMITIES: non-tender, normal range of motion, no evidence of injury, no edema NEURO: CN's nml as tested, motor nml, sensation nml, other (intoxicated) Discharge Clincal Impression: Acute alcohol intoxication Qualifiers: Complication of substance-induced condition: uncomplicated Qualified Code(s): F10.920 - Alcohol use, unspecified with intoxication, uncomplicated Referrals: Stefanie Mejia MD [Primary Care Provider] - Condition: Stable Disposition: 07 AGAINST MEDICAL ADVICE Decision to Admit: NO Decision Time: 18:17
[2019-07-10 17:31] LABS: BASOPHILS % 0.2 % (0.0-1.5); NEUTROPHILS # 3.5 # k/uL (1.4-7.7)
[2019-07-10] MEDS: 0.9 % SODIUM CHLORIDE 1,000 ML IV ONE (17:34)
[2019-07-10 17:44] LABS: eGFR (Non-African) > 60
[2019-07-10] MEDS: ONDANSETRON HCL/PF 4 MG/ 2ML VIAL IVP ONE (18:00)
[2019-07-10] MEDS: POTASSIUM CHLORIDE 20 MEQ TABLET.ER PO ONE (18:00)
[2019-07-10 18:13] VITALS: BP 182/104
[2019-07-10 20:16] LABS: CANNABINOIDS NEGATIVE ng/mL (< 50); METHYLENEDIOXYMETHAMPHETAMINE NEGATIVE ng/mL (<500)
== END 2019-07-10 18:10 | disposition left against medical advice (07) ==
LOC: ED 16:48
DX: F10.920 Alcohol use, unspecified with intoxication, uncomplicated (principal); Y90.8 Blood alcohol level of 240 mg/100 ml or more
CPT/HCPCS: 80053; 85025; 96361; 96374; 99283; 99284; A9270; G0480; G0481; J2405; J7030; 80320; 80377; S1016